=== PATIENT | female | born 1945 | race Caucasian/White ===

== ENCOUNTER → 2020-09-01 09:28 | Outpatient (BNVA) | payer MEDICARE, SELFPAY | PROVIDERS: Family Provider Registered Nurse; Visit Provider Nurse Practitioner Family | DX: E78.5 Hyperlipidemia, unspecified (principal) | CPT/HCPCS: 80061 ==

== ENCOUNTER → 2020-10-14 16:35 | Outpatient (BNVA) | payer MEDICARE, SELFPAY | PROVIDERS: Family Provider Registered Nurse; Visit Provider Nurse Practitioner Family | DX: E07.9 Disorder of thyroid, unspecified (principal) | CPT/HCPCS: 84443 ==

== ENCOUNTER → 2021-03-06 10:04 | Outpatient (BNVA) | payer MEDICARE, SELFPAY | PROVIDERS: Family Provider Registered Nurse; PCP Nurse Practitioner Family; Visit Provider Nurse Practitioner Family | DX: I50.9 Heart failure, unspecified (principal) | CPT/HCPCS: 80048; 83880 ==

== ENCOUNTER → 2021-03-27 11:27 | Outpatient (BNVA) | payer MEDICARE, SELFPAY | PROVIDERS: Family Provider Registered Nurse; PCP Nurse Practitioner Family; Visit Provider Nurse Practitioner Family | DX: E07.9 Disorder of thyroid, unspecified (principal); K21.9 Gastro-esophageal reflux disease without esophagitis | CPT/HCPCS: 84443 ==

== ENCOUNTER 2021-04-09 07:47 | Outpatient (CLI) | payer MEDICARE, SELFPAY ==
--- NOTE | 2021-04-09 08:00 | USCV_ITS ---
Judy Burgos Age: 76 Gender: F : 1945 Exam Date: 04/09/2021 08:21 Ordering Phys: Marah Lucio Technologist: Lashay Lowe Exam Location: [facility] [place] Indication: Heart Failure BP: 135 / 70 HR: 67 Rhythm: Sinus Technical Quality: Adequate MEASUREMENTS (Male / Female) Normal Values 2D ECHO LV Diastolic Diameter PLAX 3.9 cm 4.2 - 5.9 / 3.9 - 5.3 cm LV Systolic Diameter PLAX 2.7 cm IVS Diastolic Thickness 1.2 cm 0.6 - 1.0 / 0.6 - 0.9 cm IVS Systolic Thickness 1.7 cm LVPW Diastolic Thickness 1.3 cm 0.6 - 1.0 / 0.6 - 0.9 cm LVPW Systolic Thickness 1.9 cm RV Chamber Size 2.7 cm LVOT Diameter 2.0 cm LV Ejection Fraction 2D Teich 57.7 % LV Ejection Fraction MOD 2C 56.1 % LV Ejection Fraction 2C AL 56.9 % LA Diameter 3.6 cm LA Width 2.9 cm LA Height 4.9 cm RA Width 3.0 cm RA Height 4.3 cm Aorta at Sinotubular Diameter 2.9 cm M-MODE LV Diastolic Diameter MM 3.9 cm 4.2 - 5.9 / 3.9 - 5.3 cm LV Systolic Diameter MM 2.7 cm LV Ejection Fraction MM Teich 58.9 % IVS Diastolic Thickness MM 1.1 cm 0.6 - 1.0 / 0.6 - 0.9 cm IVS Systolic Thickness MM 1.2 cm LVPW Diastolic Thickness MM 1.6 cm 0.6 - 1.0 / 0.6 - 0.9 cm LVPW Systolic Thickness MM 1.5 cm Aortic Annulus Diameter 3.5 cm LA Ao Ratio MM 1.1 MV E Point Septal Separation 0.4 cm DOPPLER AV Peak Velocity 165.0 cm/s LVOT Peak Velocity 84.0 cm/s AV Area Cont Eq vti 1.7 cm squared AV Area Cont Eq pk 1.6 cm squared MV Area PHT 3.1 cm squared Mitral E to A Ratio 0.8 MV E' Velocity 45.0 cm/s Mitral E to MV E' Ratio 15.1 Mitral E to LV E' Lateral Ratio 15.1 Mitral E to LV E' Septal Ratio 15.1 TR Peak Velocity 253.0 cm/s TR Peak Gradient 25.6 mmHg TV Peak E Velocity 57.0 cm/s Right Atrial Pressure 3.0 mmHg Pulmonary Artery Systolic Pressu 28.6 mmHg PV Peak Velocity 100.0 cm/s RV Acceleration Time 0.1 s RV Ejection Time 0.3 s RV AcT/ET 0.3 FINDINGS Left Ventricle Normal left ventricular size, systolic function and wall thickness, with no regional wall motion abnormalities. Left ventricular ejection fraction is estimated at 65 %. Grade I diastolic dysfunction (abnormal relaxation filling pattern), normal to mildly elevated filling pressures. Right Ventricle Normal right ventricular size and systolic function. Right ventricular systolic pressure 28.6 mmHg. Right Atrium Normal right atrial size. Left Atrium Mildly increased left atrial size. Mitral Valve Mildly thickened mitral valve. No mitral valve stenosis. Trace mitral valve regurgitation. Aortic Valve Structurally normal trileaflet aortic valve. No aortic valve stenosis. Moderate aortic valve regurgitation. Tricuspid Valve Structurally normal tricuspid valve. No tricuspid valve stenosis. Trace to mild tricuspid valve regurgitation. Pulmonic Valve Pulmonic valve not well visualized. Trace pulmonary valve regurgitation. Pericardium No pericardial effusion. Aorta Normal size aortic root and proximal ascending aorta. CONCLUSIONS 1. Normal left ventricular size, systolic function and wall thickness, with no regional wall motion abnormalities. Left ventricular ejection fraction is estimated at 65 %. Grade I diastolic dysfunction (abnormal relaxation filling pattern), normal to mildly elevated filling pressures. 2. Normal right ventricular size and systolic function. 3. Pulmonary artery pressure estimated at 29 mm Hg. 4. Moderate aortic valve regurgitation. 5. No prior similar studies to compare. Vivienne Hood MD (Electronically Signed) Final Date: 12 April 2021 17:14 S
== END 2021-04-09 07:48 | disposition home or self-care (01) ==
LOC: RAD 07:55
PROVIDERS: PCP Nurse Practitioner Family; Visit Provider Nurse Practitioner Family
DX: I50.9 Heart failure, unspecified (principal); I35.1 Nonrheumatic aortic (valve) insufficiency
CPT/HCPCS: 93306

== ENCOUNTER 2021-07-29 07:59 | Outpatient (CLI) | payer OTHER, SELFPAY ==
--- NOTE | 2021-07-29 08:21 | CT_ITS ---
WS: [id number] CT scan of the abdomen and pelvis with Oral and IV contrast. Additional two-dimensional coronal and s agittal reconstruction was performed. 07/29/2021 Clinical Data: R10.9 - Unspecified abdominal pain Comparison: CT abdomen and pelvis, 08/08/2017. DLP: 1045.[address] scans at [facility] use at least one of these dose optimization techniques: automated e xposure control; mA and/or kV adjustment per patient size (includes targeted exams where dose is matc hed to clinical indication); or iterative reconstruction. Findings: The lower lungs show no nodules, masses or effusions. The pulmonary vascularity is prominent and ther e is a groundglass appearance to the lower lobes. The liver, spleen, adrenal glands and pancreas are normal. There are clips in the gallbladder fossa f rom a cholecystectomy. The kidneys show equal bilateral contrast excretion with multiple bilateral nonobstructing central ca lculi. No hydronephrosis, cyst or renal mass is seen.. The abdominal aorta is normal in size with minimal calcification in the wall.. No appendicitis or diverticulitis is seen. There are large number of diverticula throughout the colon . Oral contrast is in the stomach and small bowel and there is no bowel dilatation. No abscess, adeno ralf, ascites, mass, obstruction or free air is seen. The bladder is unremarkable. The uterus is absent. No inguinal hernia is seen. The bones of the lower thorax, lumbar spine, pelvis, and hips show degenerative change of the lumbar vertebral bodies. CT/CT abdomen pelvis w con* [id number] Impression: 1. Pulmonary vascular congestion with groundglass appearance of the lower lobes . 2. Negative for acute intra-abdominal or pelvic abnormalities.
[2021-07-29 10:09] LABS: Blood Urea Nitrogen 15 mg/dL (8-23)
[2021-07-29] MEDS: iohexol 300 mg/mL 50 mL Btl PO (10:15)
[2021-07-29] MEDS: iohexol 300 mg/mL 100 mL Btl IV (10:15)
== END 2021-07-29 08:00 | disposition home or self-care (01) ==
PROVIDERS: PCP Nurse Practitioner Family; Visit Provider Nurse Practitioner Family
DX: Z01.812 Encounter for preprocedural laboratory examination (principal); R10.9 Unspecified abdominal pain
CPT/HCPCS: 74177; 82565; 84520; Q9967

== ENCOUNTER → 2022-01-11 14:45 | Outpatient (BNVA) | payer MEDICARE, SELFPAY | PROVIDERS: PCP Nurse Practitioner Family; Referring Provider Nurse Practitioner Family; Visit Provider Podiatrist Foot & Ankle Surgery | DX: M79.671 Pain in right foot (principal); M19.071 Primary osteoarthritis, right ankle and foot | CPT/HCPCS: 73630 ==

== ENCOUNTER → 2022-01-29 09:49 | Outpatient (BNVA) | payer BC, SELFPAY | PROVIDERS: PCP Nurse Practitioner Family; Visit Provider Nurse Practitioner Family | DX: I10 Essential (primary) hypertension (principal); E07.9 Disorder of thyroid, unspecified; E78.5 Hyperlipidemia, unspecified | CPT/HCPCS: 80053; 80061; 84443 ==

== ENCOUNTER → 2022-02-19 09:49 | Outpatient (BNVA) | payer MEDICARE, SELFPAY | PROVIDERS: PCP Nurse Practitioner Family; Visit Provider Internal Medicine Cardiovascular Disease | DX: I11.0 Hypertensive heart disease with heart failure (principal); I50.9 Heart failure, unspecified; I47.1 Supraventricular tachycardia | CPT/HCPCS: 99214 ==

== ENCOUNTER 2022-02-23 13:12 | Emergency (ER) | payer MEDICARE, SELFPAY ==
[2022-02-23] VITALS (20 sets, daily range): BP systolic 94–142; BP diastolic 58–76; PULSE 84–97; RESP 12–22; TEMP 36.6–37; O2SAT 88–94; BMI 29.9
[2022-02-23 14:03] LABS: Hemoglobin 14.2 g/dL (11.5-15.3); Mean Corpuscular HGB Conc 33.8 g/dL (30.0-36.0); Mean Corpuscular Volume 85.9 fl (81-99); Mean Platelet Volume 10.4 fL (7.4-10.4); Platelet Count 65 10^3/cmm (130-400); Red Blood Count 4.89 10^6/uL (4.1-5.3); Red Cell Distribution Width 13.1 % (12.1-15.1); White Blood Count 19.3 10^3/uL (4.0-10.0)
--- NOTE | 2022-02-23 14:13 | ECG_ITS ---
[facility] Test Date: 2022-02-23 Pat Name: Judy Burgos Department: Room: Gender: Female Prop Setter: : 1945 Requested By: Federica Cárdensa Order Number: [id number] Tyrone MD: Ajit Whitehead M.D. Measurements Intervals [place] Rate: 93 P: IN: QRS: 15 QRSD: 82 T: 44 QT: 346 QTc: 432 Interpretive Statements SUPRAVENTRICULAR RHYTHM LOW QRS VOLTAGE IN PRECORDIAL LEADS [QRS DEFLECTION < 1.0 mV IN CHEST LEADS] POSSIBLE RIGHT VENTRICULAR CONDUCTION DELAY [RSR (QR) IN V1/V2] SEPTAL MYOCARDIAL INFARCTION , OF INDETERMINATE AGE [40+ ms Q WAVE IN V1/V2] Compared to ECG 02/23/2022 15:09:03 Supraventricular rhythm now present Sinus rhythm no longer present Myocardial infarct finding still present Electronically Signed On 02-23-2022 20:46:25 CDT by Ajit Whitehead M.D. [id number]
--- NOTE | 2022-02-23 14:13 | XRR_ITS ---
PROCEDURE INFORMATION: Exam: XR Chest Exam date and time: 02/23/2022 3:18 PM Age: 77 years old Clinical indication: Other: Dizziness TECHNIQUE: Imaging protocol: XR of the chest. Views: 1 view. COMPARISON: CR Chest 1 [place] [id number] 08/08/2017 6:21 PM FINDINGS: Lungs: Mild diffuse nonspecific reticular interstitial opacities bilaterally which may represent interstitial pneumonitis and/or mild interstitial pulmonary edema. However there is also increasing confluence opacity in the left base/retrocardiac region which may represent developing pneumonia. Pleural spaces: No pleural effusion. No pneumothorax. Heart/Mediastinum: Cardiac silhouette size, and vascularity are somewhat accentuated, likely related to poor inspiration/expansion however clinical correlation for mild CHF should be obtained. As above. Bones/joints: No acute osseous findings. Other findings: Single view was submitted. XR/XR chest 1V portable [id number] IMPRESSION: 1. Accentuated cardiac silhouette size and vascularity. See discussion above. 2. Bilateral interstitial opacities and increasing confluent opacity in the left base. See discussion above..
--- NOTE | 2022-02-23 14:14 | W.ED.DIZZY ---
Documented by User: IVORY Jordan 02/24/22 07:05 HPI - Dizziness General: Chief Complaint: Dizziness Stated Complaint: Low BP, Dizziness, On heartcare meds Time Seen by Provider: 02/23/22 13:56 Source: patient and family (daughter) Mode of arrival: wheelchair Limitations: no limitations History of Present Illness: HPI Narrative: Patient is a 77-year-old female here with her daughter for concerns of dizziness and hypotension. Patient has a PMH significant for HTN, SVT, hyperthyroidism, CHF (last echocardiogram was 03/2021 showing an EF of 65%). Patient was recently seen at [facility] on Tuesday for right sided abdominal pains and diagnosed with a right ureter stone as well as a UTI. She was discharged home on Hydrocodone, Flomax, and Augmentin. Patient tells me she is still having intermittent right lower abdominal pains. She was having nausea and vomiting when she presented to their ED but states this has subsided. Daughter feels like patient's swelling has worsened. She did see her tissue recovery technician Dr. Hood recently who made changes to her furosemide and amlodipine but patient has not started these new changes yet. Patient tells me she is having blood pressures as low as 80s/40s at home. MD elicited complaint: dizziness Onset (ago): day(s) Timing: gradual onset Context: recent illness History of similar symptoms: No Associated symptoms: Denies chest pain, chills, headache(s), nausea, palpitations, syncope or vomiting Associated neuro symptoms: Deny confusion or numbness in extremities Review of Systems Const: Denies: fever(s), chills or body aches Eyes: Denies: change in vision Card: Reports: swelling of feet/ankles (chronic) and lightheadedness; Denies: chest pain, palpitations, irregular heart rhythm or syncope Resp: Denies: dyspnea, wheezing or hemoptysis GI: Reports: abdominal pain; Denies: nausea, vomiting, diarrhea or change in bowel habits : Denies: flank pain or difficulty voiding Musc: Denies: neck pain, back pain, extremity pain or joint pain Skin/Breast: Denies: rash Neuro: Reports: dizziness; Denies: headache(s), numbness in extremities, sensory changes, frequent falls, confusion, Slurred speech present, difficulty communicating thoughts or seizure-like activity PFS ED PFSH: Medical History HTN (hypertension) Osteoarthritis SVT (supraventricular tachycardia) Thyroid disease Surgical History S/P cholecystectomy S/P hysterectomy S/P tubal ligation Family History Mother Heart disease Brother Heart disease Stroke Social History Smoking and tobacco status: never smoked Physical Exam Const: COMMON NORMALS: patient oriented x3, no limitations, alert and well nourished GENERAL APPEARANCE: cooperative and ill appearing ORIENTATION/CONSCIOUSNESS: Yes awake, Yes oriented to person, Yes oriented to place and Yes oriented to time HENMT: COMMON NORMALS: normocephalic and atraumatic HEAD & SCALP: normal to inspection, normocephalic and atraumatic Eye: COMMON NORMALS: Equal, round and reactive pupils present and EOMs intact bilaterally GENERAL EYE: normal light reflex SCLERA: scleral abnormal Laterality of scleral abnormality: positive bilateral scleral icterus PUPIL: Yes Equal, round and reactive pupils present DIRECT OPHTHALMOSCOPY: Yes normal light reflex Resp: COMMON NORMALS: normal respiratory effort and clear to auscultation bilaterally AUSCULTATION: clear to auscultation bilaterally Cardio: COMMON NORMALS: regular rate and regular rhythm RATE: regular rate RHYTHM: regular rhythm GI: COMMON NORMALS: Normal to inspection, nondistended, normoactive bowel sounds present and Soft to palpation INSPECTION: Yes normal to inspection AUSCULTATION: Yes normoactive bowel sounds PALPATION: Yes Soft to palpation, Yes Tenderness to palpation present (GI) (R upper and R mid abdomen), No Guarding due to palpation present (GI) and No Rigid due to palpation : COMMON NORMALS: Yes no CVA tenderness BLADDER/KIDNEY EXAM: Yes no CVA tenderness Back/Pelvis: COMMON NORMALS: no CVA tenderness, thoracic and lumbar spine normal to inspection and no thoracic nor lumbar tenderness Extremity: COMMON NORMALS: normal to inspection, capillary refill normal, no joint enlargement, no clubbing, cyanosis or edema and no calf tenderness NARRATIVE EXTREMITY EXAM: mild bilateral LE symmetrical non-pitting edema GENERAL: Yes normal exam except as noted Neuro: VAUGHN COMA SCALE: document GCS findings Norton coma scale eye opening: Spontaneous Norton coma scale verbal response: Orientated Vaughn coma scale motor response: Obey commands Vaughn coma scale total score: 15 COMMON NORMALS: patient oriented x3, moves all extremities, no focal motor deficits and no sensory deficits noted SENSORIUM/ORIENTATION: Yes alert, Yes oriented to person, Yes oriented to place and Yes oriented to time Skin: COMMON NORMALS: no rashes or lesions noted GENERAL SKIN EXAM: no rashes or lesions noted Course ED course: Patient was moved from and Dr. Peterson will assume care of her given her acuity. Vital Signs: Vital signs: Vital Signs Temperature 97.8 F 02/23/22 19:00 Pulse Rate 89 02/24/22 01:05 Respiratory Rate 16 02/24/22 01:05 Blood Pressure 117/65 02/24/22 01:05 Pulse Oximetry 96 02/24/22 01:05 MDM - Dizziness Lab Data : 02/23/22 13:55 02/23/22 13:55 Radiology Impressions Chest X-Ray 02/23/22 14:13 IMPRESSION: 1. Accentuated cardiac silhouette size and vascularity. See discussion above. 2. Bilateral interstitial opacities and increasing confluent opacity in the left base. See discussion above.. Abdomen/Pelvis CT 02/23/22 14:37 IMPRESSION: 1. Recently passed calculus in the bladder lumen measuring about 3 x 3 mm. No significant hydronephrosis on either side. Punctate nonobstructing bilateral renal calculi are also present. No obstructing ureteral/UVJ region calculi. 2. Colonic diverticulosis without diverticulitis or other acute bowel findings. 3. Mild splenomegaly with stable tiny 3 mm hypodense lesion, nonspecific. See discussion above. 4. Extrahepatic biliary ductal dilatation which could be related to normal status post cholecystectomy. However distal CBD obstruction cannot be excluded. Clinical/LFT correlation should be obtained. Followup imaging may also be considered if clinically indicated. Comparison with previous studies may also be helpful if available. 5. Cardiothoracic findings as above. Cholangiopancreatography MRI 02/23/22 16:51 IMPRESSION: 1. Status post cholecystectomy with intrahepatic and extrahepatic bile duct dilatation similar to recent CT exam. No intraductal calculi or obvious biliary stricture. No significant pancreatic ductal dilatation or large cystic masses. 2. Limited pancreatic assessment due to lack of contrast however no large contour deforming masses are identified. Interval imaging follow-up may be obtained if clinically indicated. GI consultation may also be considered to assess possibility of ERCP/EUS if clinically indicated. 3. Hepatic steatosis without cirrhosis. Mild splenomegaly. Laboratory Results WBC 19.3 10^3/uL (4.0-10.0) H 02/23/22 13:55 RBC 4.89 10^6/uL (4.1-5.3) 02/23/22 13:55 Hgb 14.2 g/dL (11.5-15.3) 02/23/22 13:55 Hct 42.0 % (37.0-47.0) 02/23/22 13:55 MCV 85.9 fl (81-99) 02/23/22 13:55 MCH 29.0 pg (28.0-34.0) 02/23/22 13:55 MCHC 33.8 g/dL (30.0-36.0) 02/23/22 13:55 RDW 13.1 % (12.1-15.1) 02/23/22 13:55 Plt Count 65 10^3/cmm (130-400) L 02/23/22 13:55 MPV 10.4 fL (7.4-10.4) 02/23/22 13:55 Lymph % (Auto) Not Reportable 02/23/22 13:55 [place] % (Auto) Not Reportable 02/23/22 13:55 Lymph # (Auto) Not Reportable 02/23/22 13:55 [place] # (Auto) Not Reportable 02/23/22 13:55 Total Counted 100 (0-100) 02/23/22 13:55 Atypical Lymphs % 0.0 % (0-5) 02/23/22 13:55 Absolute Neutrophils 14.9 10^3/cmm (1.4-6.5) H 02/23/22 13:55 Segmented Neutrophils 59 % 02/23/22 13:55 Abs Segm Neuts (Man) 11.4 10/cmm (1.6-7.1) H 02/23/22 13:55 Band Neutrophils 18.0 % 02/23/22 13:55 Abs Band Neuts (Man) 3.5 10^3/cmm (0.0-1.2) H 02/23/22 13:55 Absolute Lymphocytes 1.5 10^3/cmm (1.2-3.4) 02/23/22 13:55 Lymphocytes (Manual) 8 % 02/23/22 13:55 Monocytes (Manual) 3.0 % 02/23/22 13:55 Absolute Monocytes 0.6 10^3/cmm (0.1-0.6) 02/23/22 13:55 Eosinophils (Manual) 0 % 02/23/22 13:55 Absolute Eosinophils 0.0 10^3/cmm (0.0-0.7) 02/23/22 13:55 Basophils (Manual) 0.0 % 02/23/22 13:55 Absolute Basophils 0.0 10^3/cmm (0.0-0.2) 02/23/22 13:55 Metamyelocytes 11.0 % 02/23/22 13:55 Myelocytes 1.0 % 02/23/22 13:55 Platelet Estimate Decreased (Normal) L 02/23/22 13:55 PT 16.90 SECONDS (12.1-14.9) H 02/23/22 14:55 INR 1.34 (0.8-1.2) H 02/23/22 14:55 Sodium 133 mmol/L (136-145) L 02/23/22 13:55 Potassium 4.2 mmol/L (3.5-5.1) 02/23/22 13:55 Chloride 99 mmol/L (98-107) 02/23/22 13:55 Carbon Dioxide 23 mmol/L (22-29) 02/23/22 13:55 Anion Gap 15.2 (5-19) 02/23/22 13:55 BUN 44 mg/dL (8-23) H 02/23/22 13:55 Creatinine 1.3 mg/dL (0.5-0.9) H 02/23/22 13:55 GFR Calculation Not Reportable 02/23/22 13:55 Glucose 106 mg/dL (65-115) 02/23/22 13:55 Calculated Osmolality 288 mOsm/kg (285-295) 02/23/22 13:55 Lactic Acid 2.1 mmol/L (0.5-2.2) 02/23/22 14:55 Lactic Acid (Sepsis) 1.5 mmol/L (0.5-2.2) 02/23/22 17:48 Calcium 7.9 mg/dL (8.5-10.5) L 02/23/22 13:55 Total Bilirubin 4.3 mg/dL (0.15-1.2) H 02/23/22 13:55 AST 188 U/L (0-32) H 02/23/22 13:55 ALT 310 U/L (0-33) H 02/23/22 13:55 Alkaline Phosphatase 97 IU/L (35-105) 02/23/22 13:55 Troponin T Baseline 23 ng/L (0-10) H 02/23/22 13:55 Troponin T 120 Minute 20.67 ng/L (0-10) H 02/23/22 15:44 Delta Troponin T -2.33 ABS# (0-10) L 02/23/22 15:44 Troponin T Hi Sens 6Hr 14.83 ng/L (0-10) H 02/23/22 20:16 Troponin T Hi Sens 6Hr Delta -8.17 ng/L (0-12) L 02/23/22 20:16 NT-Pro-B Natriuret Pep 2579 pg/mL (0-450) H 02/23/22 13:55 Total Protein 5.9 g/dL (6.6-8.7) L 02/23/22 13:55 Albumin 3.2 g/dL (3.5-5.2) L 02/23/22 13:55 Globulin 2.7 g/dL (1.3-4.6) 02/23/22 13:55 Lipase 15 U/L (13-60) 02/23/22 13:55 Procalcitonin 58.18 ng/mL (0-0.5) H 02/23/22 13:55 TSH 5.63 uIU/mL (0.27-4.20) H 02/23/22 13:55 Urine Color Evelin (Yellow) 02/23/22 15:00 Urine Appearance Sl hazy (CLEAR) 02/23/22 15:00 Urine pH 5 (5-7) 02/23/22 15:00 Ur Specific [place] 1.020 (1.005-1.030) 02/23/22 15:00 Urine Protein Neg (Negative) 02/23/22 15:00 Urine Glucose (UA) Norm (Normal) 02/23/22 15:00 Urine Ketones Negative (Negative) 02/23/22 15:00 Urine Blood 3+ (Negative) H 02/23/22 15:00 Urine Nitrate Negative (Negative) 02/23/22 15:00 Urine Bilirubin 2+ (Negative) H 02/23/22 15:00 Urine Urobilinogen 4 mg/dL (Negative) H 02/23/22 15:00 Ur Leukocyte Esterase Trace (Negative) H 02/23/22 15:00 Urine RBC 50-80 /hpf (0-2) H 02/23/22 15:00 Urine WBC 10-15 /hpf (0-5) H 02/23/22 15:00 Ur Squamous Epith Cells Rare /hpf (0-5) 02/23/22 15:00 Amorphous Sediment Not Reportable 02/23/22 15:00 Urine Bacteria 2+ /hpf (NONE) H 02/23/22 15:00 Acetaminophen < 5.0 ug/mL (10-30) L 02/23/22 13:15 Hepatitis A IgM Ab TNP 02/23/22 20:16 Hep Bs Antigen Non-reactive (Nonreactive) 02/23/22 20:16 Hep B Core IgM Ab Non-reactive (Nonreactive) 02/23/22 20:16 Hepatitis C Antibody Non-reactive (Nonreactive) 02/23/22 20:16 Discharge Plan Discharge Patient Disposition: Admitted As Inpatient Clinical Impression: Thrombocytopenia, Elevated LFTs, Left lower lobe pneumonia, Acute kidney injury, Acute on chronic clinical systolic heart failure Condition: Stable Coding Level of Care Code ED Corrections Identification Technician for Chg Fwd Exam Comprehensive Documented by User: Susi Levy MD 02/23/22 21:23 HPI - Dizziness General: Chief Complaint: Dizziness Stated Complaint: Low BP, Dizziness, On heartcare meds Time Seen by Provider: 02/23/22 13:56 PFSH ED PFSH: Medical History HTN (hypertension) Osteoarthritis SVT (supraventricular tachycardia) Thyroid disease Surgical History S/P cholecystectomy S/P hysterectomy S/P tubal ligation Family History Mother Heart disease Brother Heart disease Stroke Social History Smoking and tobacco status: never smoked Physical Exam Neuro: VAUGHN COMA SCALE: document GCS findings Norton coma scale total score: 15 Course Vital Signs: Vital signs: Vital Signs Temperature 97.8 F 02/23/22 19:00 Pulse Rate 89 02/24/22 01:05 Respiratory Rate 16 02/24/22 01:05 Blood Pressure 117/65 02/24/22 01:05 Pulse Oximetry 96 02/24/22 01:05 MDM - Dizziness Medical Decision Making Patient presents here with white count and initial hypotension is improved here with IV fluids does have a possible pneumonia also has elevated LFTs with a possible cholangitis I spoke to my surgeon on-call here Dr. Bianchi who felt patient need to be transferred for higher level of care GI did speak to [facility] who is excepting. Lab Data : 02/23/22 13:55 02/23/22 13:55 Radiology Impressions Chest X-Ray 02/23/22 14:13 IMPRESSION: 1. Accentuated cardiac silhouette size and vascularity. See discussion above. 2. Bilateral interstitial opacities and increasing confluent opacity in the left base. See discussion above.. Abdomen/Pelvis CT 02/23/22 14:37 IMPRESSION: 1. Recently passed calculus in the bladder lumen measuring about 3 x 3 mm. No significant hydronephrosis on either side. Punctate nonobstructing bilateral renal calculi are also present. No obstructing ureteral/UVJ region calculi. 2. Colonic diverticulosis without diverticulitis or other acute bowel findings. 3. Mild splenomegaly with stable tiny 3 mm hypodense lesion, nonspecific. See discussion above. 4. Extrahepatic biliary ductal dilatation which could be related to normal status post cholecystectomy. However distal CBD obstruction cannot be excluded. Clinical/LFT correlation should be obtained. Followup imaging may also be considered if clinically indicated. Comparison with previous studies may also be helpful if available. 5. Cardiothoracic findings as above. Cholangiopancreatography MRI 02/23/22 16:51 IMPRESSION: 1. Status post cholecystectomy with intrahepatic and extrahepatic bile duct dilatation similar to recent CT exam. No intraductal calculi or obvious biliary stricture. No significant pancreatic ductal dilatation or large cystic masses. 2. Limited pancreatic assessment due to lack of contrast however no large contour deforming masses are identified. Interval imaging follow-up may be obtained if clinically indicated. GI consultation may also be considered to assess possibility of ERCP/EUS if clinically indicated. 3. Hepatic steatosis without cirrhosis. Mild splenomegaly. Laboratory Results WBC 19.3 10^3/uL (4.0-10.0) H 02/23/22 13:55 RBC 4.89 10^6/uL (4.1-5.3) 02/23/22 13:55 Hgb 14.2 g/dL (11.5-15.3) 02/23/22 13:55 Hct 42.0 % (37.0-47.0) 02/23/22 13:55 MCV 85.9 fl (81-99) 02/23/22 13:55 MCH 29.0 pg (28.0-34.0) 02/23/22 13:55 MCHC 33.8 g/dL (30.0-36.0) 02/23/22 13:55 RDW 13.1 % (12.1-15.1) 02/23/22 13:55 Plt Count 65 10^3/cmm (130-400) L 02/23/22 13:55 MPV 10.4 fL (7.4-10.4) 02/23/22 13:55 Lymph % (Auto) Not Reportable 02/23/22 13:55 [place] % (Auto) Not Reportable 02/23/22 13:55 Lymph # (Auto) Not Reportable 02/23/22 13:55 [place] # (Auto) Not Reportable 02/23/22 13:55 Total Counted 100 (0-100) 02/23/22 13:55 Atypical Lymphs % 0.0 % (0-5) 02/23/22 13:55 Absolute Neutrophils 14.9 10^3/cmm (1.4-6.5) H 02/23/22 13:55 Segmented Neutrophils 59 % 02/23/22 13:55 Abs Segm Neuts (Man) 11.4 10/cmm (1.6-7.1) H 02/23/22 13:55 Band Neutrophils 18.0 % 02/23/22 13:55 Abs Band Neuts (Man) 3.5 10^3/cmm (0.0-1.2) H 02/23/22 13:55 Absolute Lymphocytes 1.5 10^3/cmm (1.2-3.4) 02/23/22 13:55 Lymphocytes (Manual) 8 % 02/23/22 13:55 Monocytes (Manual) 3.0 % 02/23/22 13:55 Absolute Monocytes 0.6 10^3/cmm (0.1-0.6) 02/23/22 13:55 Eosinophils (Manual) 0 % 02/23/22 13:55 Absolute Eosinophils 0.0 10^3/cmm (0.0-0.7) 02/23/22 13:55 Basophils (Manual) 0.0 % 02/23/22 13:55 Absolute Basophils 0.0 10^3/cmm (0.0-0.2) 02/23/22 13:55 Metamyelocytes 11.0 % 02/23/22 13:55 Myelocytes 1.0 % 02/23/22 13:55 Platelet Estimate Decreased (Normal) L 02/23/22 13:55 PT 16.90 SECONDS (12.1-14.9) H 02/23/22 14:55 INR 1.34 (0.8-1.2) H 02/23/22 14:55 Sodium 133 mmol/L (136-145) L 02/23/22 13:55 Potassium 4.2 mmol/L (3.5-5.1) 02/23/22 13:55 Chloride 99 mmol/L (98-107) 02/23/22 13:55 Carbon Dioxide 23 mmol/L (22-29) 02/23/22 13:55 Anion Gap 15.2 (5-19) 02/23/22 13:55 BUN 44 mg/dL (8-23) H 02/23/22 13:55 Creatinine 1.3 mg/dL (0.5-0.9) H 02/23/22 13:55 GFR Calculation Not Reportable 02/23/22 13:55 Glucose 106 mg/dL (65-115) 02/23/22 13:55 Calculated Osmolality 288 mOsm/kg (285-295) 02/23/22 13:55 Lactic Acid 2.1 mmol/L (0.5-2.2) 02/23/22 14:55 Lactic Acid (Sepsis) 1.5 mmol/L (0.5-2.2) 02/23/22 17:48 Calcium 7.9 mg/dL (8.5-10.5) L 02/23/22 13:55 Total Bilirubin 4.3 mg/dL (0.15-1.2) H 02/23/22 13:55 AST 188 U/L (0-32) H 02/23/22 13:55 ALT 310 U/L (0-33) H 02/23/22 13:55 Alkaline Phosphatase 97 IU/L (35-105) 02/23/22 13:55 Troponin T Baseline 23 ng/L (0-10) H 02/23/22 13:55 Troponin T 120 Minute 20.67 ng/L (0-10) H 02/23/22 15:44 Delta Troponin T -2.33 ABS# (0-10) L 02/23/22 15:44 Troponin T Hi Sens 6Hr 14.83 ng/L (0-10) H 02/23/22 20:16 Troponin T Hi Sens 6Hr Delta -8.17 ng/L (0-12) L 02/23/22 20:16 NT-Pro-B Natriuret Pep 2579 pg/mL (0-450) H 02/23/22 13:55 Total Protein 5.9 g/dL (6.6-8.7) L 02/23/22 13:55 Albumin 3.2 g/dL (3.5-5.2) L 02/23/22 13:55 Globulin 2.7 g/dL (1.3-4.6) 02/23/22 13:55 Lipase 15 U/L (13-60) 02/23/22 13:55 Procalcitonin 58.18 ng/mL (0-0.5) H 02/23/22 13:55 TSH 5.63 uIU/mL (0.27-4.20) H 02/23/22 13:55 Urine Color Evelin (Yellow) 02/23/22 15:00 Urine Appearance Sl hazy (CLEAR) 02/23/22 15:00 Urine pH 5 (5-7) 02/23/22 15:00 Ur Specific [place] 1.020 (1.005-1.030) 02/23/22 15:00 Urine Protein Neg (Negative) 02/23/22 15:00 Urine Glucose (UA) Norm (Normal) 02/23/22 15:00 Urine Ketones Negative (Negative) 02/23/22 15:00 Urine Blood 3+ (Negative) H 02/23/22 15:00 Urine Nitrate Negative (Negative) 02/23/22 15:00 Urine Bilirubin 2+ (Negative) H 02/23/22 15:00 Urine Urobilinogen 4 mg/dL (Negative) H 02/23/22 15:00 Ur Leukocyte Esterase Trace (Negative) H 02/23/22 15:00 Urine RBC 50-80 /hpf (0-2) H 02/23/22 15:00 Urine WBC 10-15 /hpf (0-5) H 02/23/22 15:00 Ur Squamous Epith Cells Rare /hpf (0-5) 02/23/22 15:00 Amorphous Sediment Not Reportable 02/23/22 15:00 Urine Bacteria 2+ /hpf (NONE) H 02/23/22 15:00 Acetaminophen < 5.0 ug/mL (10-30) L 02/23/22 13:15 Hepatitis A IgM Ab TNP 02/23/22 20:16 Hep Bs Antigen Non-reactive (Nonreactive) 02/23/22 20:16 Hep B Core IgM Ab Non-reactive (Nonreactive) 02/23/22 20:16 Hepatitis C Antibody Non-reactive (Nonreactive) 02/23/22 20:16 EKG Data EKG 1: I personally reviewed and interpreted this EKG as follows: EKG interpretation date: 02/23/22 EKG interpretation time: 19:24 Interpretation: nsr hr [address] or t wave abnormalities qrs 82 qtc 397 Discharge Plan Discharge Patient Disposition: Admitted As Inpatient Clinical Impression: Thrombocytopenia, Elevated LFTs, Left lower lobe pneumonia, Acute kidney injury, Acute on chronic clinical systolic heart failure Condition: Stable Coding Level of Care Code ED Corrections Identification Technician for Chg Fwd Exam Comprehensive Documented by User: Ki Peterson DO 02/25/22 07:07 HPI - Dizziness General: Chief Complaint: Dizziness Stated Complaint: Low BP, Dizziness, On heartcare meds Time Seen by Provider: 02/23/22 13:56 PFSH ED PFSH: Medical History HTN (hypertension) Osteoarthritis SVT (supraventricular tachycardia) Thyroid disease Surgical History S/P cholecystectomy S/P hysterectomy S/P tubal ligation Family History Mother Heart disease Brother Heart disease Stroke Social History Smoking and tobacco status: never smoked Physical Exam Neuro: VAUGHN COMA SCALE: document GCS findings Vaughn coma scale total score: 15 Course Vital Signs: Vital signs: Vital Signs Temperature 97.8 F 02/23/22 19:00 Pulse Rate 89 02/24/22 01:05 Respiratory Rate 16 02/24/22 01:05 Blood Pressure 117/65 02/24/22 01:05 Pulse Oximetry 96 02/24/22 01:05 MDM - Dizziness Medical Decision Making Chart reviewed and patient discussed with midlevel. Agree with assessment and plan. Care then turned over to Dr. Levy at change of shift see his note for final diagnosis and disposition Patient presents here with white count and initial hypotension is improved here with IV fluids does have a possible pneumonia also has elevated LFTs with a possible cholangitis I spoke to my surgeon on-call here Dr. Bianchi who felt patient need to be transferred for higher level of care GI did speak to [facility] who is excepting. Lab Data : 02/23/22 13:55 02/23/22 13:55 Radiology Impressions Chest X-Ray 02/23/22 14:13 IMPRESSION: 1. Accentuated cardiac silhouette size and vascularity. See discussion above. 2. Bilateral interstitial opacities and increasing confluent opacity in the left base. See discussion above.. Abdomen/Pelvis CT 02/23/22 14:37 IMPRESSION: 1. Recently passed calculus in the bladder lumen measuring about 3 x 3 mm. No significant hydronephrosis on either side. Punctate nonobstructing bilateral renal calculi are also present. No obstructing ureteral/UVJ region calculi. 2. Colonic diverticulosis without diverticulitis or other acute bowel findings. 3. Mild splenomegaly with stable tiny 3 mm hypodense lesion, nonspecific. See discussion above. 4. Extrahepatic biliary ductal dilatation which could be related to normal status post cholecystectomy. However distal CBD obstruction cannot be excluded. Clinical/LFT correlation should be obtained. Followup imaging may also be considered if clinically indicated. Comparison with previous studies may also be helpful if available. 5. Cardiothoracic findings as above. Cholangiopancreatography MRI 02/23/22 16:51
[2022-02-23 14:31] LABS: Alanine Aminotransferase 310 U/L (0-33); Albumin Level 3.2 g/dL (3.5-5.2); Alkaline Phosphatase 97 IU/L (35-105); Anion Gap 15.2 (5-19); Aspartate Amino Transferase 188 U/L (0-32); Blood Urea Nitrogen 44 mg/dL (8-23); Calcium 7.9 mg/dL (8.5-10.5); Carbon Dioxide 23 mmol/L (22-29); Chloride 99 mmol/L (98-107); Globulin 2.7 g/dL (1.3-4.6); Glucose 106 mg/dL (65-115); Osmolality Calculated 288 mOsm/kg (285-295); Potassium 4.2 mmol/L (3.5-5.1); Sodium 133 mmol/L (136-145); Thyroid Stimulating Hormone 5.63 uIU/mL (0.27-4.20); Total Bilirubin 4.3 mg/dL (0.15-1.2); Total Protein 5.9 g/dL (6.6-8.7)
--- NOTE | 2022-02-23 14:37 | CTR_ITS ---
PROCEDURE INFORMATION: Exam: CT Abdomen And Pelvis With Contrast Exam date and time: 02/23/2022 4:18 PM Age: 77 years old Clinical indication: Nausea and other: Low BP; Prior surgery; Surgery date: 6+ months; Surgery type: Gb; Hystorectomy; PT denies smoking HX; PT denies HX of CA; Additional info: Pain, hypotension, elevated lfts, recently diagnosed with R ureter stone with UTI TECHNIQUE: Imaging protocol: Computed tomography of the abdomen and pelvis with contrast. Radiation optimization: All CT scans at this facility use at least one of these dose optimization techniques: automated exposure control; mA and/or kV adjustment per patient size (includes targeted exams where dose is matched to clinical indication); or iterative reconstruction. Contrast material: VISIPAQUE 320; Contrast volume: 95 ml; Contrast route: INTRAVENOUS (IV); COMPARISON: CT abdomen pelvis w con* [id number] 07/29/2021 10:13 AM RADIATION DOSE METRICS: Total DLP (mGy-cm): 1707.47 FINDINGS: Lungs: Bibasilar interstitial prominence suggesting chronic scarring or early fibrotic changes. Heart: Mild cardiomegaly with probable mild vascular congestion. Liver: Slightly elongated right hepatic lobe with no significant overall hepatomegaly. No cirrhosis. Calcified hepatic granulomas. No suspicious lesion. Probable mild hepatic steatosis. Gallbladder and bile ducts: Prior cholecystectomy. Slightly prominent proximal CBD at 9-10 mm however it demonstrates normal gradual distal tapering measuring 5 mm distally. Pancreas: Normal. No ductal dilation. Spleen: Mild splenomegaly. Calcified splenic granuloma. Tiny hypodense lesion superior splenic region measuring 3 mm, unchanged and is most likely benign. However follow-up in 6-12 months may be considered if there is history of malignancy. Adrenal glands: Normal. No mass. Kidneys and ureters: Bilateral lower pole nonobstructing renal calculi measuring about 3 mm. There is minimal urothelial enhancement of the right ureter. A calculus is noted in the dependent bladder lumen measuring about 3 x 3 mm, presumably related to recently passed calculus. No obstructing UVJ or ureteral calculi are otherwise identified. Stomach and bowel: Colonic diverticulosis. Small to moderate stool burden. Appendix: Normal appendix. Intraperitoneal space: Unremarkable. No free air. No significant fluid collection. Vasculature: Aortoiliac calcifications without aneurysm. Lymph nodes: No enlarged lymph nodes. Urinary bladder: See Kidneys and ureters finding. Reproductive: Prior hysterectomy. Bones/joints: Multilevel vertebral disc degeneration and endplate osteophytes. No acute osseous findings otherwise. Soft tissues: No acute findings. CT/CT abdomen pelvis w con* [id number] IMPRESSION: 1. Recently passed calculus in the bladder lumen measuring about 3 x 3 mm. No significant hydronephrosis on either side. Punctate nonobstructing bilateral renal calculi are also present. No obstructing ureteral/UVJ region calculi. 2. Colonic diverticulosis without diverticulitis or other acute bowel findings. 3. Mild splenomegaly with stable tiny 3 mm hypodense lesion, nonspecific. See discussion above. 4. Extrahepatic biliary ductal dilatation which could be related to normal status post cholecystectomy. However distal CBD obstruction cannot be excluded. Clinical/LFT correlation should be obtained. Followup imaging may also be considered if clinically indicated. Comparison with previous studies may also be helpful if available. 5. Cardiothoracic findings as above.
[2022-02-23 14:44] LABS: Slide Review Slide Review Perform
[2022-02-23 14:45] LABS: Absolute Neutrophil 14.9 10^3/cmm (1.4-6.5); Absolute Segmented Neutrophil 11.4 10/cmm (1.6-7.1); Band Neutrophils Absolute 3.5 10^3/cmm (0.0-1.2); Eosinophils 0 %; Lymphocytes 8 %; Lymphocytes Absolute 1.5 10^3/cmm (1.2-3.4); Monocytes Absolute 0.6 10^3/cmm (0.1-0.6); Platelet Estimate Decreased (Normal); Segmented Neutrophils 59 %; Total Cells Counted 100 (0-100)
--- NOTE | 2022-02-23 14:58 | PC.PHAR ---
pt states she takes care of her own medications-pt states shes been taking amlodipine 5mg bid-rx written on 02/19/22 for 5mg daily-pt states she set her senior planner up for the 5mg bid states on tuesday she'll redo the senior planner and do 5mg daily-pts family states the pt took one treatment of albuterol today states this medication is not the pts -pt states she got some kind of shot in her foot last tuesday-notes are made in the pharmacy comments
[2022-02-23] MEDS: piperacillin-tazobactam 3.375 GM in sodium chloride 0.9% (plus) 50 ML IV (15:20)
[2022-02-23] MEDS: sodium chloride 0.9% 1,710 ML 1710 ML IV (15:21)
[2022-02-23 15:34] LABS: Lactic Sepsis W/Reflex 2.1 mmol/L (0.5-2.2)
[2022-02-23 15:35] LABS: Lipase 15 U/L (13-60); NT Pro B Type Natriuretic Pept 2579 pg/mL (0-450)
[2022-02-23 15:41] LABS: INR 1.34 (0.8-1.2)
[2022-02-23 16:10] LABS: Glucose Urine UA Norm (Normal); Ketones Urine Negative (Negative); Protein Urine Neg (Negative); Urine Appearance SL Hazy (CLEAR); Urine Color Amber (Yellow); pH Urine 5 (5-7)
[2022-02-23 16:11] LABS: Add Urine Microscopic? YES; Bilirubin Urine 2+ (Negative); Blood Urine 3+ (Negative); Leukocyte Esterase Urine Trace (Negative); Nitrate Urine Negative (Negative); Urobilinogen Urine 4 mg/dL (Negative)
[2022-02-23 16:12] LABS: Add Urine Culture? Yes; Bacteria Urine 2+ /hpf; RBC Urine 50-80 /hpf (0-2); Squamous Epithelial Cell Urine RARE /hpf (0-5)
--- NOTE | 2022-02-23 16:13 | ECG_ITS ---
[facility] Test Date: 2022-02-23 Pat Name: Judy Burgos Department: Room: Gender: Female Rn Practitioner: : 1945 Requested By: Federica Cárdenas Order Number: [id number] Tyrone MD: Ajit Whitehead M.D. Measurements Intervals [place] Rate: 85 P: -28 PA: 164 QRS: 12 QRSD: 87 T: 37 QT: 359 QTc: 429 Interpretive Statements SINUS RHYTHM LOW QRS VOLTAGE IN PRECORDIAL LEADS [QRS DEFLECTION < 1.0 mV IN CHEST LEADS] POSSIBLE RIGHT VENTRICULAR CONDUCTION DELAY [RSR (QR) IN V1/V2] ANTEROSEPTAL MYOCARDIAL INFARCTION , OF INDETERMINATE AGE [40+ ms Q WAVE IN V1-V4] Compared to ECG 09/22/2017 10:29:44 Low QRS voltage now present Ectopic atrial rhythm no longer present Myocardial infarct finding still present Electronically Signed On 02-23-2022 20:54:11 CDT by Ajit Whitehead M.D. [id number]
[2022-02-23 16:17] LABS: Procalcitonin 58.18 ng/mL (0-0.5)
[2022-02-23] MEDS: iodixanol 320 mg/mL 100mL Btl IV (16:20)
[2022-02-23 16:28] LABS: Troponin 5 2HR 20.67 ng/L (0-10)
[2022-02-23 16:47] LABS: Troponin(5th) Baseline 23 ng/L (0-10)
[2022-02-23 16:47] LABS: Reflex Lactate Order REFLEX LACTIC ORDERD
--- NOTE | 2022-02-23 16:51 | MRR_ITS ---
PROCEDURE INFORMATION: Exam: MR Abdomen Without Contrast Exam date and time: 02/23/2022 6:12 PM Age: 77 years old Clinical indication: Abdominal pain; Generalized; Prior surgery; Surgery type: Gall bladder; Additional info: Hyperbilirubinemia TECHNIQUE: Imaging protocol: MR of the abdomen without contrast. COMPARISON: CT abdomen pelvis w con* [id number] 02/23/2022 4:18 PM FINDINGS: Liver: Liver is normal in size with diffuse steatosis. No cirrhosis. No large hepatic lesions on unenhanced images. Gallbladder and bile ducts: Prior cholecystectomy. Mild intrahepatic bile duct dilatation. No obvious intrahepatic biliary stricture. Mild proximal CBD dilatation measuring 9-6 mm, demonstrating gradual tapering distally with distal CBD measuring about 3-4 mm. No intraductal calculi. Pancreas: No significant main pancreatic ductal dilatation or large cystic lesions. No large contour deforming pancreatic mass is identified however assessment is limited due to lack of IV contrast. Spleen: Mild splenomegaly. Tiny hypodense splenic lesion, seen on CT, cannot be well visualized, due to motion. Adrenal glands: Unremarkable. No mass. Kidneys and ureters: Unremarkable. No solid mass. No hydronephrosis. Stomach and bowel: Visualized stomach and intestines are unremarkable. Intraperitoneal space: No free fluid. Arteries: No abdominal aortic aneurysm. Bones/joints: Unremarkable. Soft tissues: Unremarkable. Other findings: Multiple routine sequences were submitted. Limited MRCP series were also obtained. Postcontrast dynamic images using IV gadolinium were not obtained. MR/MR MRCP [id number] IMPRESSION: 1. Status post cholecystectomy with intrahepatic and extrahepatic bile duct dilatation similar to recent CT exam. No intraductal calculi or obvious biliary stricture. No significant pancreatic ductal dilatation or large cystic masses. 2. Limited pancreatic assessment due to lack of contrast however no large contour deforming masses are identified. Interval imaging follow-up may be obtained if clinically indicated. GI consultation may also be considered to assess possibility of ERCP/EUS if clinically indicated. 3. Hepatic steatosis without cirrhosis. Mild splenomegaly.
[2022-02-23 16:57] LABS: Troponin 5 2HR Delta -2.33 ABS# (0-10)
[2022-02-23] MEDS: vancomycin 1,000 MG in sodium chloride 0.9% 250 ML 250 MG IV (17:12)
[2022-02-23 17:20] LABS: Acetaminophen < 5.0 ug/mL (10-30)
[2022-02-23 18:14] LABS: Lactic Acid level (Lactate) 1.5 mmol/L (0.5-2.2)
--- NOTE | 2022-02-23 19:08 | PC.NURSE ---
190 assumed pt care from Acacia GARCES
--- NOTE | 2022-02-23 20:13 | ECG_ITS ---
[facility] Test Date: 2022-02-23 Pat Name: Judy Burgos Department: Room: Gender: Female Nurse'S Assistant: : 1945 Requested By: Federica Cárdenas Order Number: [id number] Tyrone MD: Ajit Whitehead M.D. Measurements Intervals [place] Rate: 92 P: 4 IL: 162 QRS: 19 QRSD: 83 T: 53 QT: 348 QTc: 430 Interpretive Statements SINUS RHYTHM POSSIBLE LEFT ATRIAL ENLARGEMENT [-0.1mV P-WAVE IN V1/V2] LOW QRS VOLTAGE IN PRECORDIAL LEADS [QRS DEFLECTION < 1.0 mV IN CHEST LEADS] POSSIBLE RIGHT VENTRICULAR CONDUCTION DELAY [RSR (QR) IN V1/V2] ANTEROSEPTAL MYOCARDIAL INFARCTION , OF INDETERMINATE AGE [40+ ms Q WAVE IN V1-V4] Compared to ECG 09/22/2017 10:29:44 Low QRS voltage now present Ectopic atrial rhythm no longer present Myocardial infarct finding still present Electronically Signed On 02-23-2022 20:54:15 CDT by Ajit Whitehead M.D. [email or web address].[email or web address]/store/Ov/[id number]
[2022-02-23 21:30] LABS: Troponin 5 6HR 14.83 ng/L (0-10)
[2022-02-23] MEDS: HYDROmorphone 1 mg/mL INJ 1 mL IVP (21:48)
[2022-02-23 22:56] LABS: Hepatitis B Core IgM Non-Reactive (Nonreactive); Hepatitis B Surface Antigen Non-Reactive (Nonreactive); Hepatitis C Virus Antibody Non-Reactive (Nonreactive)
[2022-02-24] VITALS: BP 120/63; PULSE 91; RESP 16; O2SAT 94
[2022-02-24 00:30] VITALS: BP 102/58; PULSE 90; RESP 16; O2SAT 94
[2022-02-24 01:00] VITALS: BP 110/68; PULSE 87; RESP 16; O2SAT 95
[2022-02-24 01:05] VITALS: BP 117/65; PULSE 89; RESP 16; O2SAT 96
== END 2022-02-24 01:15 | disposition admitted as inpatient to this hospital (09) ==
PROVIDERS: Emergency Medicine; Family Medicine; Physician Assistant; Emergency Provider Emergency Medicine; PCP Nurse Practitioner Family
DX: D69.6 Thrombocytopenia, unspecified (principal); R79.89 Other specified abnormal findings of blood chemistry; J18.9 Pneumonia, unspecified organism; N17.9 Acute kidney failure, unspecified; I11.0 Hypertensive heart disease with heart failure; I50.23 Acute on chronic systolic (congestive) heart failure; I95.9 Hypotension, unspecified
CPT/HCPCS: 36415; 71045; 74177; 74181; 80053; 80074; 80307; 81001; 83605; 83690; 83880; 84145; 84443; 84484; 85007; 85025; 85610; 87040; 87086; 93005; 96365; 96367; 96375; 99285; J1170; J2543; J3370; J7030; J7050; Q9967

== ENCOUNTER 2022-03-02 10:32 | Outpatient (CLI) | payer MEDICARE, SELFPAY ==
[2022-03-02 11:22] LABS: Basophils % 0.7 %; Eosinophils # 0.1 10^3/uL (0.0-0.8); Eosinophils % 0.9 %; Hematocrit 47.4 % (37.0-47.0); Hemoglobin 15.1 g/dL (11.5-15.3); Lymphocytes # 1.7 10^3/uL (0.8-4.8); Lymphocytes % 28.9 %; Mean Corpuscular HGB Conc 31.9 g/dL (30.0-36.0); Mean Corpuscular Hemoglobin 28.6 pg (28.0-34.0); Mean Corpuscular Volume 89.8 fl (81-99); Mean Platelet Volume 10.6 fL (7.4-10.4); Monocytes # 0.6 10^3/uL (0.2-0.9); Monocytes % 9.6 %; Neutrophils # 3.37 10^3/uL (1.8-7.7); Neutrophils % 57.5 %; Nucleated Red Blood Cells % 0 %; Platelet Count 253 10^3/cmm (130-400); Red Blood Count 5.28 10^6/uL (4.1-5.3); White Blood Count 5.9 10^3/uL (4.0-10.0)
[2022-03-02 12:16] LABS: Alanine Aminotransferase 129 U/L (0-33); Albumin Level 3.6 g/dL (3.5-5.2); Alkaline Phosphatase 201 IU/L (35-105); Aspartate Amino Transferase 44 U/L (0-32); Blood Urea Nitrogen 15 mg/dL (8-23); Calcium 9.6 mg/dL (8.5-10.5); Carbon Dioxide 22 mmol/L (22-29); Chloride 102 mmol/L (98-107); Globulin 3.8 g/dL (1.3-4.6); Glucose 109 mg/dL (65-115); Osmolality Calculated 285 mOsm/kg (285-295); Sodium 137 mmol/L (136-145); Total Bilirubin 0.7 mg/dL (0.15-1.2); Total Protein 7.4 g/dL (6.6-8.7)
== END 2022-03-02 10:33 | disposition home or self-care (01) ==
LOC: LAB 10:35
PROVIDERS: PCP Nurse Practitioner Family; Visit Provider Nurse Practitioner Family
DX: J02.9 Acute pharyngitis, unspecified (principal); R79.89 Other specified abnormal findings of blood chemistry; D69.6 Thrombocytopenia, unspecified; J39.2 Other diseases of pharynx
CPT/HCPCS: 36415; 80053; 85025; 87070; 87071; 87880

== ENCOUNTER → 2022-03-15 09:47 | Outpatient (BNVA) | payer MEDICARE, SELFPAY | PROVIDERS: PCP Nurse Practitioner Family; Visit Provider Nurse Practitioner Family | DX: N39.0 Urinary tract infection, site not specified (principal); D69.6 Thrombocytopenia, unspecified; R74.8 Abnormal levels of other serum enzymes | CPT/HCPCS: 80076; 81000; 85025; 87077; 87086; 87184 ==

== ENCOUNTER → 2022-03-24 10:57 | Outpatient (BNVA) | payer MEDICARE, SELFPAY | PROVIDERS: PCP Nurse Practitioner Family; Visit Provider Nurse Practitioner Family | DX: N39.0 Urinary tract infection, site not specified (principal) | CPT/HCPCS: 81000; 87077; 87086; 87184 ==

== ENCOUNTER 2022-04-05 11:59 | Outpatient (CLI) | payer MEDICARE, SELFPAY ==
--- NOTE | 2022-04-05 12:07 | MM_ITS ---
WS: [id number] BILATERAL 3D TOMOSYNTHESIS DIGITAL SCREENING MAMMOGRAPHY WITH CAD CLINICAL INFORMATION: SCREEN HISTORY: Screening mammogram. LEFT breast soreness COMPARISON: TECHNIQUE: Bilateral CC and MLO views. FINDINGS: Scattered fibroglandular densities bilaterally. Punctate calcifications upper outer LEFT breast. Vasc ular calcification. No suspicious focal mass, asymmetry, calcifications, or architectural distortion. No evidence of malignancy. MM/[place] [id number] IMPRESSION: BI-RADS: 2-Benign FOLLOW UP: 1 Year Follow-up Recommend return to annual screening mammography.
--- NOTE | 2022-04-05 12:59 | XR_ITS ---
WS: [id number] KUB, AP view, 04/05/2022. Clinical Data: urolithiasis Comparison: None. Findings: No abnormal intraabdominal masses or calcifications are seen. There is no dilatated small bowel or ev idence of obstruction. There is a stent on the right side of the abdomen extending from the T12-L1 level to the L3-L4 level which may represent a biliary stent. There are clips in the right upper quadrant from a cholecystecto my. Fecal material is seen throughout the colon. There is a levoscoliosis with osteoarthritis of the lumbar spine. XR/XR KUB [id number] Impression: Negative for acute intra-abdominal abnormalities.
== END 2022-04-05 12:00 | disposition home or self-care (01) ==
PROVIDERS: PCP Nurse Practitioner Family; Visit Provider Nurse Practitioner Family
DX: Z12.31 Encounter for screening mammogram for malignant neoplasm of breast (principal); N20.9 Urinary calculus, unspecified
CPT/HCPCS: 74018; 77063; 77067

== ENCOUNTER → 2022-05-28 11:23 | Outpatient (BNVA) | payer MEDICARE, SELFPAY | PROVIDERS: PCP Nurse Practitioner Family; Visit Provider Nurse Practitioner Family | DX: N39.0 Urinary tract infection, site not specified (principal); L98.9 Disorder of the skin and subcutaneous tissue, unspecified; E07.9 Disorder of thyroid, unspecified | CPT/HCPCS: 81000 ==

== ENCOUNTER → 2022-06-04 10:32 | Outpatient (BNVA) | payer MEDICARE, SELFPAY | PROVIDERS: PCP Nurse Practitioner Family; Visit Provider Nurse Practitioner Family | DX: E07.9 Disorder of thyroid, unspecified (principal) | CPT/HCPCS: 84443 ==

== ENCOUNTER → 2022-06-09 09:11 | Outpatient (BNVA) | payer MEDICARE, SELFPAY | PROVIDERS: PCP Nurse Practitioner Family; Visit Provider Nurse Practitioner Family | DX: E07.9 Disorder of thyroid, unspecified (principal); E78.5 Hyperlipidemia, unspecified; K57.92 Diverticulitis of intestine, part unspecified, without perforation or abscess without bleeding | CPT/HCPCS: 80061; 84443 ==

== ENCOUNTER → 2022-12-17 10:41 | Outpatient (BNVA) | payer MEDICARE, SELFPAY | PROVIDERS: PCP Nurse Practitioner Family; Visit Provider Nurse Practitioner Family | DX: I50.9 Heart failure, unspecified (principal); I10 Essential (primary) hypertension; R07.9 Chest pain, unspecified | CPT/HCPCS: 80053; 80061; 84443 ==

== ENCOUNTER → 2022-12-29 13:13 | Outpatient (BNVA) | payer MEDICARE, SELFPAY | PROVIDERS: PCP Nurse Practitioner Family; Visit Provider Internal Medicine Cardiovascular Disease | DX: R07.9 Chest pain, unspecified (principal); R74.8 Abnormal levels of other serum enzymes; I10 Essential (primary) hypertension; I47.1 Supraventricular tachycardia; Z79.82 Long term (current) use of aspirin | CPT/HCPCS: 99214 ==

== ENCOUNTER 2023-01-16 18:21 | Emergency (ER) | payer MEDICARE, SELFPAY ==
[2023-01-16 18:26] VITALS: BP 135/84; PULSE 82; TEMP 36.6; O2SAT 95; BMI 28.6
--- NOTE | 2023-01-16 18:51 | XRR_ITS ---
PROCEDURE INFORMATION: Exam: XR Chest Exam date and time: 01/16/2023 7:26 PM Age: 78 years old Clinical indication: Shortness of breath; Additional info: SOB TECHNIQUE: Imaging protocol: Radiologic exam of the chest. Views: 1 view. COMPARISON: CR XR chest 1V portable [id number] 02/23/2022 3:18 PM FINDINGS: Lungs: Moderate COPD. Xvpe-lqslras-fmin-right hazy lung base densities are mildly progressed. Pleural spaces: Unremarkable. No pleural effusion. No pneumothorax. Heart/Mediastinum: The heart is upper limits normal size. Vasculature: Advanced diffuse vascular calcification noted. Bones/joints: Unremarkable. XR/XR chest 1V portable [id number] IMPRESSION: 1. Increasing areas of qczr-lfbsxea-ctiu-right patchy lung base atelectasis, scarring, edema, or pneumonitis. 2. COPD.
[2023-01-16 19:18] VITALS: PULSE 79; RESP 22; O2SAT 92
[2023-01-16] MEDS: ipratropium-albuterol 3 mL Neb INHALATION (19:18)
--- NOTE | 2023-01-16 19:18 | ECG_ITS ---
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 Measurements Intervals [place] Rate: 77 P: 31 [place]: 216 QRS: -19 QRSD: 81 T: 9 QT: 378 QTc: 428 Interpretive Statements SINUS RHYTHM WITH FIRST DEGREE AV BLOCK LOW QRS VOLTAGE IN PRECORDIAL LEADS [QRS DEFLECTION < 1.0 mV IN CHEST LEADS] POSSIBLE RIGHT VENTRICULAR CONDUCTION DELAY [RSR (QR) IN V1/V2] INFERIOR MYOCARDIAL INFARCTION , PROBABLY OLD [40+ ms Q WAVE AND/OR ST/T ABNORMALITY IN II/aVF] Compared to ECG 02/23/2022 19:24:19 First degree AV block now present Supraventricular rhythm no longer present Myocardial infarct finding still present Electronically Signed On 01-16-2023 22:35:27 CDT by Ajit Whitehead M.D. [email or web address].[email or web address]/[id number]
[2023-01-16 19:24] LABS: Basophils % 0.2 %; Hematocrit 42.1 % (37.0-47.0); Hemoglobin 13.9 g/dL (11.5-15.3); Lymphocytes # 0.8 10^3/uL (0.8-4.8); Mean Corpuscular Hemoglobin 28.1 pg (28.0-34.0); Mean Corpuscular Volume 85.2 fl (81-99); Mean Platelet Volume 9.9 fL (7.4-10.4); Monocytes # 0.2 10^3/uL (0.2-0.9); Monocytes % 3.9 %; Neutrophils # 3.14 10^3/uL (1.8-7.7); Neutrophils % 76.7 %; Nucleated Red Blood Cells % 0 %; Platelet Count 213 10^3/cmm (130-400); Red Blood Count 4.94 10^6/uL (4.1-5.3); White Blood Count 4.1 10^3/uL (4.0-10.0)
[2023-01-16 19:40] VITALS: PULSE 80; RESP 22; O2SAT 92
[2023-01-16 19:42] LABS: Lactic Sepsis W/Reflex 1.3 mmol/L (0.5-2.2)
--- NOTE | 2023-01-16 19:46 | W.ED.URI ---
HPI - URI/Sore Throat General: Chief Complaint: Upper Respiratory Infection Stated Complaint: cough,weakness Time Seen by Provider: 01/16/23 18:31 Source: patient History of Present Illness: 78-year-old female with cough and congestion for the last week. No fever. Cough is productive of minimal white sputum. No change in leg swelling. She has been congested with a runny nose as well. She saw her PCP earlier in the week and was given azithromycin. She has been taking Mucinex. This is without relief. MD elicited complaint: cough, rhinorrhea and nasal congestion Onset (ago): day(s) Consistency: constant Severity: moderate Description of mucous: yellow Able to tolerate fluids by mouth: Yes Exacerbating factors: exertion and supine positioning Relieving factors: nothing Context: sick contacts Associated symptoms: Reports congestion, cough, diarrhea, nasal congestion, rhinorrhea and short of breath; Deny abdominal pain, chest pain, epistaxis, fever(s), sinus pain, stiffness or vomiting Review of Systems Const: Denies: fever(s) ENMT: Reports: nasal congestion; Denies: throat pain, epistaxis or sinus pain Card: Denies: chest pain Resp: Reports: dyspnea and productive cough; Denies: wheezing GI: Reports: diarrhea; Denies: abdominal pain or vomiting [facility] ED PFSH: Medical History HTN (hypertension) Osteoarthritis SVT (supraventricular tachycardia) Thyroid disease Surgical History S/P cholecystectomy S/P hysterectomy S/P tubal ligation Family History Mother Heart disease Brother Heart disease Stroke Social History Smoking and tobacco status: never smoked Alcohol intake: never Current gender identity: Female Physical Exam Const: COMMON NORMALS: no acute distress GENERAL APPEARANCE: cooperative; not ill appearing and not frail appearing HENMT: COMMON NORMALS: normocephalic, atraumatic and Normal external nose present HEAD & SCALP: normocephalic and atraumatic FACE & SINUS: normal facial exam and face symmetric NOSE: Normal external nose present Eye: COMMON NORMALS: Equal, round and reactive pupils present and EOMs intact bilaterally PUPIL: Yes Equal, round and reactive pupils present Neck/C-Spine: GENERAL: Yes trachea midline Chest: CHEST: Yes Symmetrical chest wall rise Resp: COMMON NORMALS: normal respiratory effort, No retractions and No use of accessory muscles AUSCULTATION: rhonchi right lower Cardio: COMMON NORMALS: regular rate and regular rhythm RATE: regular rate RHYTHM: regular rhythm GI: COMMON NORMALS: Normal to inspection, nondistended, normoactive bowel sounds present Extremity: COMMON NORMALS: no pedal edema Neuro: VAUGHN COMA SCALE: document GCS findings [place] coma scale eye opening: Spontaneous Vaughn coma scale verbal response: Orientated [place] coma scale motor response: Obey commands [place] coma scale total score: 15 SENSORY EXAM: Yes extremities (intact) Psych: COMMON NORMALS: speech normal SPEECH: Yes normal speech Skin: COMMON NORMALS: no rashes or lesions noted GENERAL SKIN EXAM: no rashes or lesions noted Course Vital Signs: Vital signs: Vital Signs Temperature 97.9 F 01/16/23 18:26 Pulse Rate 79 01/16/23 19:49 Respiratory Rate 23 H 01/16/23 19:49 Blood Pressure 137/80 01/16/23 19:49 Pulse Oximetry 94 01/16/23 19:49 Oxygen Delivery Me thod 01/16/23 19:49 Oxygen Flow Rate 2 01/16/23 19:49 MDM - URI/Sore Throat Medical Decision Making X-ray shows bilateral pneumonitis/pneumonia. COVID antigen is negative. White blood cell count is 4.1. Hemoglobin is 14. Lactic acid is 1.3. CRP is only 8. Other laboratory is not remarkable. She will be treated with inhaler, cough suppressant, antibiotics, and steroids. She is improved after breathing treatment here. Will discharge for return for worsening symptoms. Lab Data 01/16/23 19:00 01/16/23 19:00 Radiology Impressions Chest X-Ray 01/16/23 18:51 IMPRESSION: 1. Increasing areas of rnqq-aqfmsrb-krwj-right patchy lung base atelectasis, scarring, edema, or pneumonitis. 2. COPD. Laboratory Results WBC 4.1 10^3/uL (4.0-10.0) 01/16/23 19:00 RBC 4.94 10^6/uL (4.1-5.3) 01/16/23 19:00 Hgb 13.9 g/dL (11.5-15.3) 01/16/23 19:00 Hct 42.1 % (37.0-47.0) 01/16/23 19:00 MCV 85.2 fl (81-99) 01/16/23 19:00 MCH 28.1 pg (28.0-34.0) 01/16/23 19: MCHC 33.0 g/dL (30.0-36.0) 01/16/23 19: RDW 12.0 % (12.1-15.1) L 01/16/23 19:00 Plt Count 213 10^3/cmm (130-400) 01/16/23 19:00 MPV 9.9 fL (7.4-10.4) 01/16/23 19:00 Neut % (Auto) 76.7 % 01/16/23 19:00 Lymph % (Auto) 19.0 % 01/16/23 19: Bremer % (Auto) 3.9 % 01/16/23 19:00 Eos % (Auto) 0.0 % 01/16/23 19:00 Baso % (Auto) 0.2 % 01/16/23 19:00 Neut # (Auto) 3.14 10^3/uL (1.8-7.7) 01/16/23 19:00 Lymph # (Auto) 0.8 10^3/uL (0.8-4.8) 01/16/23 19:00 Bremer # (Auto) 0.2 10^3/uL (0.2-0.9) 01/16/23 19:00 Eos # (Auto) 0.0 10^3/uL (0.0-0.8) 01/16/23 19:00 Baso # (Auto) 0.0 10^3/uL (0.0-0.1) 01/16/23 19:00 Nucleated RBC % (auto) 0 % 01/16/23 19:00 Nucleated RBCs # 0.0 /100WBC 01/16/23 19:00 Sodium 140 mmol/L (136-145) 01/16/23 19:00 Potassium 4.2 mmol/L (3.5-5.1) 01/16/23 19:00 Chloride 105 mmol/L (98-107) 01/16/23 19:00 Carbon Dioxide 22 mmol/L (22-29) 01/16/23 19:00 Anion Gap 17.2 (5-19) 01/16/23 19:00 BUN 20 mg/dL (8-23) 01/16/23 19:00 Creatinine 0.6 mg/dL (0.5-0.9) 01/16/23 19:00 GFR Calculation Not Reportable 01/16/23 19:00 Glucose 123 mg/dL (65-115) H 01/16/23 19:00 Calculated Osmolality 294 mOsm/kg (285-295) 01/16/23 19:00 Lactic Acid 1.3 mmol/L (0.5-2.2) 01/16/23 19:00 Calcium 8.7 mg/dL (8.5-10.5) 01/16/23 19:00 Total Bilirubin 0.3 mg/dL (0.15-1.2) 01/16/23 19:00 AST 16 U/L (0-32) 01/16/23 19:00 ALT 13 U/L (0-33) 01/16/23 19:00 Alkaline Phosphatase 73 U/L (35-105) 01/16/23 19:00 C-Reactive Protein 8.0 mg/L (0.0-4.9) H 01/16/23 19:00 NT-Pro-B Natriuret Pep 58 pg/mL (0-450) 01/16/23 19:00 Total Protein 7.5 g/dL (6.6-8.7) 01/16/23 19:00 Albumin 4.1 g/dL (3.5-5.2) 01/16/23 19:00 Globulin 3.4 g/dL (1.3-4.6) 01/16/23 19:00 SARS-CoV-2 Ag (Rapid) negative (Negative) 01/16/23 19:06 Discharge Plan Discharge Patient Disposition: Home Clinical Impression: Pneumonia Condition: Stable Prescriptions: New Medrol (Figueroa) 4 mg tablets,dose pack See Rx Instructions .ROUTE .COMPLEX Qty: 21 0RF Rx Instructions: orally per package directions albuterol sulfate 90 mcg/actuation HFA aerosol inhaler 2 inh INHALATION Q4H PRN (Reason: shortness of breath or wheezing) Qty: 6.7 1RF doxycycline hyclate 100 mg capsule 100 mg PO BID 7 Days Qty: 14 0RF codeine-guaifenesin 10-100 mg/5 mL liquid 5 ml PO Q6H PRN (Reason: cough) Qty: 120 0RF No Action aspirin 325 mg tablet 325 mg PO QAM carvedilol 12.5 mg tablet 12.5 mg PO BID Rx Instructions: must administer with a meal/food; 340B pantoprazole 20 mg tablet,delayed release (DR/EC) 40 mg PO DAILY meloxicam 7.5 mg tablet See Rx Instructions .ROUTE .COMPLEX Qty: 30 0RF Dose Instruction: TAKE 1 TABLET BY MOUTH DAILY NEEDED FOR OSTEOARTHRITIS Rx Instructions: TAKE 1 TABLET BY MOUTH DAILY NEEDED FOR OSTEOARTHRITIS azithromycin [Zithromax Z-Figueroa] 250 mg tablet See Rx Instructions PO .COMPLEX Qty: 6 0RF Rx Instructions: For 250 mg dose pack: take 500 mg today (day 1), then 250 mg for 4 days (days 2-5) PO propylthiouracil 50 mg tablet See Rx Instructions .ROUTE .COMPLEX Qty: 45 0RF Dose Instruction: TAKE 1/2 TABLET BY MOUTH EVERY MORNING Rx Instructions: TAKE 1/2 TABLET BY MOUTH EVERY MORNING furosemide 20 mg tablet See Rx Instructions .ROUTE .COMPLEX Qty: 90 0RF Dose Instruction: TAKE 1 TABLET BY MOUTH DAILY NEEDED FOR SWELLING Rx Instructions: TAKE 1 TABLET BY MOUTH DAILY NEEDED FOR SWELLING amlodipine 5 mg tablet 5 mg PO BID Discharge Orders: Discharge ED (Routine); Ordered 01/16/23 Ordered By: Bijan Stevens Referrals: Racquel Garvey FNP [Primary Care Provider] - 1-3 days Patient Instructions: Pneumonia (ED) Activity Restrictions/Additional Instructions: You may finish your prior antibiotic. New medications as directed. Stop your Mucinex in favor of the cough syrup prescribed. Return for worsening shortness of breath, fever despite 2-3 doses of antibiotics, any other concerning symptoms. Use the inhaler every 4 hours while awake for the next 48 hours, then as needed. Coding Level of Care Code ED Nitroglycerin Nitrator Operator Batch for Tammi Mon
[2023-01-16 19:49] VITALS: BP 137/80; PULSE 79; RESP 23; O2SAT 94
[2023-01-16 19:51] LABS: SARS Covid-2 Antigen negative (Negative)
[2023-01-16 19:54] LABS: Alanine Aminotransferase 13 U/L (0-33); Albumin Level 4.1 g/dL (3.5-5.2); Alkaline Phosphatase 73 U/L (35-105); Anion Gap 17.2 (5-19); Aspartate Amino Transferase 16 U/L (0-32); Blood Urea Nitrogen 20 mg/dL (8-23); Calcium 8.7 mg/dL (8.5-10.5); Carbon Dioxide 22 mmol/L (22-29); Chloride 105 mmol/L (98-107); Globulin 3.4 g/dL (1.3-4.6); Glucose 123 mg/dL (65-115); NT Pro B Type Natriuretic Pept 58 pg/mL (0-450); Osmolality Calculated 294 mOsm/kg (285-295); Potassium 4.2 mmol/L (3.5-5.1); Sodium 140 mmol/L (136-145); Total Bilirubin 0.3 mg/dL (0.15-1.2); Total Protein 7.5 g/dL (6.6-8.7)
[2023-01-16] MEDS: doxycycline 100 mg Tablet PO (20:19)
== END 2023-01-16 20:32 | disposition home or self-care (01) ==
PROVIDERS: Emergency Provider Emergency Medicine; PCP Nurse Practitioner Family
DX: J18.9 Pneumonia, unspecified organism (principal); Z20.822 Contact with and (suspected) exposure to COVID-19; Z79.82 Long term (current) use of aspirin; J44.0 Chronic obstructive pulmonary disease with (acute) lower respiratory infection; I10 Essential (primary) hypertension
CPT/HCPCS: 36415; 71045; 80053; 83605; 83880; 85025; 86140; 87040; 87426; 93005; 94640; 96374; 99285; J2930

== ENCOUNTER 2023-02-04 10:25 | Outpatient (CLI) | payer MEDICARE, SELFPAY ==
--- NOTE | 2023-02-04 | ECG_ITS ---
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 Interpretive Statements NAME OF STUDY: LEXISCAN SESTAMIBI STRESS TEST INDICATION: [Chest Pain, abn ekg, ] Procedure: At the baseline, the blood pressure was 122/75 mmHg with a heart rate of 76 bpm. The electrocardiogram showed normal sinus rhythm, right bundle branch block with normal ST and T's. The Lexiscan was infused over a period of 20 seconds. A total of 0.4 mg of Lexiscan was infused. The stress phase was continued for a total of 5 minutes. Heart rate was at the end of stress phase was 93 bpm and a blood pressure of 130/70 mmHg. The EKG at the peak infusion revealed normal sinus rhythm with no significant ST-T wave changes. Sestamibi was injected 20 seconds after the Lexiscan infusion. Blood pressure at the end of recovery phase was 118/60 mmHg with a heart rate of 88 bpm. Conclusion: 1. Normal EKG response to Lexiscan infusion 2. No Lexiscan induced chest pain or cardiac arrhythmia. 3. Normal blood pressure and heart rate response. 4. Sestamibi/sestamibi perfusion scan pending; see separate report. Electronically Signed On 02-05-2023 13:10:33 CDT by Ajit Whitehead M.D. [id number]
[2023-02-04 10:54] VITALS: BMI 27.4
--- NOTE | 2023-02-04 11:00 | NMCV_ITS ---
NM gary perf SPECT r/s* [id number] Judy Burgos Age: 78 Gender: F : 1945 Exam Date: 02/04/2023 11:29 Ordering Phys: Marco Alicia MD ([email or web address]) Technologist: CARSON Andrews Exam Location: [facility] Indications: Chest pain STRESS TEST Please see separate stress test report in [facility] for full findings IMAGE PROTOCOL Rest/Stress 1 Lexiscan Day Radiopharmaceutical Dose (mCi) Administration Site Administered by Rest: Tc-99m 10.8 IV CARSON Cali Sestamibi Stress:Tc-99m 31.2 IV CARSON Andrews Sestamimarisol Rest: 04-Feb-2023 60 Discovery 630 Stress: 04-Feb-2023 30 Discovery 630 0.4mg Lexiscan. Images obtained in supine and prone position. SPECT RESULTS Technical Quality: Excellent Raw Data Analysis: Normal, Breast attenuation Image Corrections: No attenuation or motion correction applied Summed Stress Score: 2 Summed Rest Score: 6 Summed Difference Score: 0 PERFUSION FINDINGS SPECT images demonstrate homogeneous tracer distribution throughout the myocardium. FUNCTIONAL RESULTS (calculated via Gated SPECT) Stress Image LV EF (%): 77 Stress EDV (mL):64 TID: 1.04 Stress ESV (mL):15 FUNCTIONAL FINDINGS: There is normal left ventricular systolic function. IMPRESSIONS 1. Normal myocardial perfusion imaging with no evidence of ischemia 2. LV systolic function is normal Ajit Whitehead MD (Electronically Signed) Final Date: 04 February 2023 13:48 S
[2023-02-04 12:19] VITALS: BP 118/67; PULSE 90
[2023-02-04] MEDS: regadenoson 0.4 Mg/5 ml Syringe IVP (12:19)
== END 2023-02-04 10:26 | disposition home or self-care (01) ==
PROVIDERS: PCP Nurse Practitioner Family; Visit Provider Internal Medicine Cardiovascular Disease
DX: R07.9 Chest pain, unspecified (principal); R94.39 Abnormal result of other cardiovascular function study
CPT/HCPCS: 36415; 78452; 93017; 96374; A9500; J2785

== ENCOUNTER 2023-02-26 08:38 | Outpatient (CLI) | payer MEDICARE, SELFPAY ==
--- NOTE | 2023-02-26 09:00 | CT_ITS ---
WS: [id number] LDCT LUNG CANCER SCREENING TECHNIQUE: Noncontrast CT of the chest with coronal and sagittal reformatted images. CLINICAL INFORMATION: Z87.891 - Personal history of nicotine dependence COMPARISON: None. DLP: 54.30 mGy.cm DIvol: Mean CTDIvol: 1.20 (mGy) All CT scans at [facility] use at least one of these dose optimization techniques: automat ed exposure control; mA and/or kV adjustment per patient size (includes targeted exams where dose is matched to clinical indication); or iterative reconstruction. FINDINGS: Diffuse interstitial thickening throughout both lungs. Hyperinflation. Scattered hazy groundglass ret icular opacities suspicious for interstitial lung disease. Perihilar bronchiectasis. Normal caliber t horacic aorta. Prominent mediastinal lymph nodes likely reactive. Coronary calcification. Adrenal gla nds are normal. Normal GE junction. Mild thoracic curve. CT/CT lung screening [id number] IMPRESSION: Findings suspicious for interstitial lung disease. Consider pulmona ry consult for further evaluation. LUNG-RADS: 2S-Benign Appearance or Behavior with Significant Findings FOLLOW UP: 12 Month: Continue annual screening with LDCT
== END 2023-02-26 08:39 | disposition home or self-care (01) ==
PROVIDERS: PCP Nurse Practitioner Family; Visit Provider Nurse Practitioner Family
DX: Z12.2 Encounter for screening for malignant neoplasm of respiratory organs (principal); Z87.891 Personal history of nicotine dependence
CPT/HCPCS: 71271

== ENCOUNTER → 2023-04-28 10:33 | Outpatient (BNVA) | payer MEDICARE, SELFPAY | PROVIDERS: PCP Nurse Practitioner Family; Visit Provider Nurse Practitioner Family | DX: I10 Essential (primary) hypertension (principal); E07.9 Disorder of thyroid, unspecified; E03.9 Hypothyroidism, unspecified | CPT/HCPCS: 80053; 80061; 84443 ==

== ENCOUNTER → 2023-05-09 15:55 | Outpatient (BNVA) | payer MEDICARE, SELFPAY | PROVIDERS: PCP Nurse Practitioner Family; Visit Provider Internal Medicine Pulmonary Disease | DX: J84.9 Interstitial pulmonary disease, unspecified (principal); J18.9 Pneumonia, unspecified organism; R53.81 Other malaise; R53.83 Other fatigue; E07.9 Disorder of thyroid, unspecified; R06.02 Shortness of breath | CPT/HCPCS: 36415; 84182; 85651; 86140; 86160; 86162; 86200; 86235; 86255; 86331; 86376; 86606; 86609; 99204 ==

== ENCOUNTER 2023-05-20 09:07 | Outpatient (CLI) | payer MEDICARE, SELFPAY ==
--- NOTE | 2023-05-20 09:30 | CT_ITS ---
WS: [id number] CT CHEST CT-HIGH RESOLUTION, NONCONTRAST. HISTORY: Interstitial lung disease. Technique: High-resolution chest CT is performed in inspiration, expiration, supine and prone positio vishal. All CT scans at [facility] use at least one of these dose optimization techniques: automated exposure control; mA and/or kV adjustment per patient size (includes targeted exams where dose is mat ched to clinical indication); or iterative reconstruction. DLP: 964.59 mGy.cm COMPARISON: Lung screening CT 02/26/2023 and 02/23/2022 lung bases. Findings: As noted on the prior CT of 02/26/2023 there bilateral multilobar areas of interstitial thick ening. Predominantly within a peribronchial distribution with more prominent interstitial thickening in the periphery of the upper and lower lobes. Distribution may be slightly greater in the upper lobe s. There are changes of mild bronchiectasis. No honeycombing is identified. There is mild traction di stortion of the lungs. There are a few peripheral cyst but these are not in a distribution or multila yered to suggest typical honeycombing seen with UIP. No dense areas of consolidation. No change in appearance of lungs on prone imaging. Very minimal change during expiration. No signific ant mosaic attenuation or air trapping. Prior cholecystectomy. No adrenal mass. Small hiatal hernia. Normal size heart. There are a few media stinal and hilar lymph nodes which are slightly greater than expected in number. These may be related to the patient's chronic interstitial lung disease. CT/CT chest wo con [id number] Impression: 1. Pulmonary findings of interstitial disease are not typical appearance for U IP. Distribution and chronic changes more suggestive of a hypersensitivity pneu monitis or an outside PET. No honeycombing of any significance. Interstitial ch anges are diffuse but slightly greater in the upper lobes. 2. Mild mediastinal and hilar prominent lymph nodes probably reactive.
== END 2023-05-20 09:08 | disposition home or self-care (01) ==
PROVIDERS: PCP Nurse Practitioner Family; Visit Provider Internal Medicine Pulmonary Disease
DX: J84.9 Interstitial pulmonary disease, unspecified (principal)
CPT/HCPCS: 71250

== ENCOUNTER → 2023-07-25 09:50 | Outpatient (BNVA) | payer MEDICARE, SELFPAY | PROVIDERS: PCP Nurse Practitioner Family; Visit Provider Internal Medicine Pulmonary Disease | DX: J84.9 Interstitial pulmonary disease, unspecified (principal); M25.511 Pain in right shoulder; M25.512 Pain in left shoulder; Z87.891 Personal history of nicotine dependence; J43.9 Emphysema, unspecified; M25.551 Pain in right hip; M25.552 Pain in left hip; M19.041 Primary osteoarthritis, right hand; M19.042 Primary osteoarthritis, left hand | CPT/HCPCS: 99214 ==

== ENCOUNTER → 2023-08-26 15:34 | Outpatient (BNVA) | payer MEDICARE, SELFPAY | PROVIDERS: PCP Nurse Practitioner Family; Visit Provider Nurse Practitioner Family | DX: N39.0 Urinary tract infection, site not specified (principal) | CPT/HCPCS: 81000 ==

== ENCOUNTER → 2023-09-30 11:15 | Outpatient (BNVA) | payer MEDICARE, SELFPAY | PROVIDERS: PCP Nurse Practitioner Family; Visit Provider Internal Medicine Cardiovascular Disease | DX: I11.0 Hypertensive heart disease with heart failure (principal); I50.9 Heart failure, unspecified; Z87.891 Personal history of nicotine dependence | CPT/HCPCS: 99214 ==

== ENCOUNTER → 2023-10-14 09:01 | Outpatient (BNVA) | payer MEDICARE, SELFPAY | PROVIDERS: PCP Nurse Practitioner Family; Visit Provider Internal Medicine Pulmonary Disease | DX: J84.9 Interstitial pulmonary disease, unspecified (principal); M25.511 Pain in right shoulder; M25.512 Pain in left shoulder; Z87.891 Personal history of nicotine dependence; J43.2 Centrilobular emphysema; J47.9 Bronchiectasis, uncomplicated | CPT/HCPCS: 99214 ==

== ENCOUNTER → 2023-11-18 10:50 | Outpatient (BNVA) | payer MEDICARE, SELFPAY | PROVIDERS: PCP Nurse Practitioner Family; Visit Provider Nurse Practitioner Family | DX: E03.9 Hypothyroidism, unspecified (principal); I10 Essential (primary) hypertension | CPT/HCPCS: 80053; 84439; 84443; 84481 ==

== ENCOUNTER 2023-11-29 09:44 | Outpatient (CLI) | payer MEDICARE, SELFPAY | END 2023-11-29 09:45 | disposition home or self-care (01) | PROVIDERS: PCP Nurse Practitioner Family; Visit Provider Internal Medicine Pulmonary Disease | DX: R06.02 Shortness of breath (principal) | CPT/HCPCS: 94010; 94618; 94726; 94729 ==

== ENCOUNTER → 2023-12-19 09:55 | Outpatient (BNVA) | payer MEDICARE, SELFPAY | PROVIDERS: PCP Nurse Practitioner Family; Visit Provider Nurse Practitioner Family | DX: I10 Essential (primary) hypertension (principal); Z87.891 Personal history of nicotine dependence | CPT/HCPCS: 99213 ==

== ENCOUNTER 2024-01-02 17:23 | Emergency (ER) | payer MEDICARE, SELFPAY ==
[2024-01-02 17:28] VITALS: BP 154/81; PULSE 76; RESP 18; TEMP 36.7; O2SAT 93; BMI 28.3
--- NOTE | 2024-01-02 17:46 | CTR_ITS ---
PROCEDURE INFORMATION: Exam: CT Head Without Contrast Exam date and time: 01/02/2024 6:07 PM Age: 78 years old Clinical indication: Injury or trauma; Fall; Other: Swelling to right eye; Additional info: Fall head trauma TECHNIQUE: Imaging protocol: Computed tomography of the head without contrast. Radiation optimization: All CT scans at this facility use at least one of these dose optimization techniques: automated exposure control; mA and/or kV adjustment per patient size (includes targeted exams where dose is matched to clinical indication); or iterative reconstruction. COMPARISON: No relevant prior studies available. RADIATION DOSE METRICS: Total DLP (mGy-cm): 1054.58 FINDINGS: Brain: No hemorrhage. No edema. Mild diffuse cerebral atrophy. No significant white matter disease. No mass effect. Cerebral ventricles: No ventriculomegaly. Paranasal sinuses: Visualized sinuses are unremarkable. No fluid levels. Mastoid air cells: Visualized mastoid air cells are well aerated. Bones/joints: Unremarkable. No acute fracture. Soft tissues: Right periorbital hematoma. CT/CT head wo con* [id number] IMPRESSION: No acute intracranial abnormality.
--- NOTE | 2024-01-02 19:40 | XRR_ITS ---
PROCEDURE INFORMATION: Exam: XR Right Knee Exam date and time: 01/02/2024 7:53 PM Age: 78 years old Clinical indication: Injury or trauma; Fall; Other: Pain from impact; Injury details: PT fell on concrete several hours ago, C/O pain in right knee and right hand. HX of arthritis in hands; Additional info: Fall pain TECHNIQUE: Imaging protocol: Radiologic exam of the right knee. Views: 3 views. COMPARISON: CR XR knees AP WB w RT lmt ORTH 06/13/2017 2:05 PM FINDINGS: Bones/joints: Normal. Soft tissues: Soft tissue swelling in the anterior knee. XR/XR knee RT 3V* [id number] IMPRESSION: No acute osseous abnormalities.
--- NOTE | 2024-01-02 19:40 | XRR_ITS ---
PROCEDURE INFORMATION: Exam: XR Right Hand Exam date and time: 01/02/2024 7:53 PM Age: 78 years old Clinical indication: Injury or trauma; Fall; Other: Pain from impact; Additional info: Fall pain TECHNIQUE: Imaging protocol: Radiologic exam of the right hand. Views: 3 or more views. COMPARISON: No relevant prior studies available. FINDINGS: Bones/joints: Osseous structures are intact. Negative for fracture. Soft tissues: Normal. XR/XR hand RT min 3V* [id number] IMPRESSION: No acute findings.
--- NOTE | 2024-01-02 19:41 | W.ED.HEATRA ---
HPI - Head Injury General: Chief complaint: Head Injury Stated complaint: fall hit head Time Seen by Provider: 01/02/24 19:33 History of Present Illness: Patient presents to the ER with complaints of tripping over a ledge falling and hitting her head on the concrete. Patient also complaining of right hand and right knee pain. Patient has a large goose egg over her right eye which is very swollen, almost swollen shut. Patient is unsure if she had loss of consciousness. Patient denies being on blood thinners. Review of Systems General: Reports: 10 or more systems reviewed and unremarkable except in HPI and below PFSH ED PFSH: Medical History Osteoarthritis Thyroid disease SVT (supraventricular tachycardia) HTN (hypertension) Surgical History S/P tubal ligation S/P cholecystectomy S/P hysterectomy Family History Mother Heart disease Brother Heart disease Stroke Social History Smoking and tobacco/nicotine status: former use of tobacco/nicotine Quit status (tobacco/nicotine): has quit using Year quit tobacco: 1986 Former quit date comment: 1 ppd X 20 years Alcohol intake: never Substance/Drug Use: never Current gender identity: Female Physical Exam Const: COMMON NORMALS: no acute distress, average body habitus, patient oriented x3, no limitations, healthy appearing, alert and well nourished HENMT: COMMON NORMALS: normocephalic, hearing grossly normal bilaterally, external ears normal, Normal external nose present, moist oral mucous membranes and oropharynx normal; head/scalp not atraumatic (Large hematoma and swelling in right eyebrow eyelid area, abrasion right ch) HEAD & SCALP: normocephalic; not atraumatic (Large hematoma and swelling in right eyebrow eyelid area, abrasion right ch) NOSE: Normal external nose present EXTERNAL EAR: Yes external ears normal Neck/C-Spine: COMMON NORMALS: full ROM, no lymphadenopathy, supple, no meningeal signs, no JVD and Thyroid normal THYROID: Thyroid normal Chest: COMMONS NORMALS: normal inspection of the chest and normal palpation of entire chest wall Resp: COMMON NORMALS: normal respiratory effort, No retractions, No use of accessory muscles and clear to auscultation bilaterally AUSCULTATION: clear to auscultation bilaterally Cardio: COMMON NORMALS: no JVD, regular rate, regular rhythm, S1 normal heart sound present, S2 normal heart sound present, No gallops present (Cardio), No clicks present (Cardio), No murmurs present (Cardio) and No rub (Cardio) RATE: regular rate RHYTHM: regular rhythm HEART SOUNDS: S1 normal heart sound present and S2 normal heart sound present GI: COMMON NORMALS: Normal to inspection, nondistended, normoactive bowel sounds present, Soft to palpation, non-tender, No hepatosplenomegaly present and no masses PALPATION: Yes Soft to palpation and Yes No hepatosplenomegaly present Extremity: NARRATIVE EXTREMITY EXAM: Pain with palpation mild swelling over right hand and right knee Region. Neuro: COMMON NORMALS: patient oriented x3 SENSORIUM/ORIENTATION: Yes alert MENINGEAL SIGNS: Yes no meningeal signs Course Vital Signs: Vital signs: Vital Signs Temperature 98.1 F 01/02/24 17:28 Pulse Rate 82 01/02/24 20:46 Respiratory Rate 18 01/02/24 17:28 Blood Pressure 185/100 01/02/24 20:46 Pulse Oximetry 98 01/02/24 20:46 Oxygen Delivery Me thod Room Air 01/02/24 17:28 MDM - Head Injury Medcial Decision Making X-rays performed on right hand and right knee which showed no acute abnormalities, head CT showed no acute intracranial abnormalities, these results was discussed with the patient and her family. Patient be discharged home. Differential Diagnosis Unlikely concussion without loss of consciousness, epidural hematoma, closed head injury, subarachnoid hematoma, postconcussion syndrome, subdural hematoma or concussion with loss of consciousness Medical Records I reviewed the patient's medical records. Lab Data I reviewed the patient's lab results. Radiology Impressions Head CT 01/02/24 17:46 IMPRESSION: No acute intracranial abnormality. Hand X-Ray 01/02/24 19:40 IMPRESSION: No acute findings. Knee X-Ray 01/02/24 19:40 IMPRESSION: No acute osseous abnormalities. All radiology interpretation(s) finalized by discharge Discharge Plan Discharge Patient Disposition: Home Clinical Impression: Pain in right hand Fall Qualifiers: Encounter type: initial encounter Qualified Code(s): W19.XXXA - Unspecified fall, initial encounter Contusion of face Qualifiers: Encounter type: initial encounter Qualified Code(s): S00.83XA - Contusion of other part of head, initial encounter Knee pain, right Qualifiers: Chronicity: acute Qualified Code(s): M25.561 - Pain in right knee Condition: Stable Prescriptions: No Action aspirin 325 mg tablet 325 mg PO QAM albuterol sulfate 0.63 mg/3 mL solution for nebulization 0.63 mg inhalation Q6H Qty: 90 1RF propylthiouracil 50 mg tablet See Rx Instructions .ROUTE .COMPLEX Qty: 45 1RF Dose Instruction: TAKE 1/2 TABLET BY MOUTH EVERY MORNING DAILY Rx Instructions: TAKE 1/2 TABLET BY MOUTH EVERY MORNING DAILY carvedilol 12.5 mg tablet 12.5 mg PO .COMPLEX Qty: 180 2RF Rx Instructions: 25 mg in am & 12.5 mg orally; Changed dose changed per cardiology 09/28/23 (DME) Acapella See Rx Instructions .Route .MEDSUPPLY Qty: 1 0RF Rx Instructions: As directed guaifenesin 100 mg/5 mL liquid 200 mg PO BID PRN (Reason: cough) Qty: 473 0RF meloxicam 7.5 mg tablet See Rx Instructions .ROUTE .COMPLEX Qty: 90 0RF Dose Instruction: TAKE 1 TABLET BY MOUTH DAILY NEEDED FOR OSTEOARTHRITIS Rx Instructions: TAKE 1 TABLET BY MOUTH DAILY NEEDED FOR OSTEOARTHRITIS albuterol sulfate 90 mcg/actuation HFA aerosol inhaler 2 inh INHALATION Q4H PRN (Reason: shortness of breath or wheezing) Qty: 6.7 1RF pantoprazole 20 mg tablet,delayed release (DR/EC) See Rx Instructions .ROUTE .COMPLEX Qty: 90 0RF Dose Instruction: TAKE 1 TABLET BY MOUTH DAILY Rx Instructions: TAKE 1 TABLET BY MOUTH DAILY furosemide 20 mg tablet See Rx Instructions .ROUTE .COMPLEX Qty: 90 0RF Dose Instruction: TAKE 1 TABLET BY MOUTH DAILY NEEDED FOR SWELLING Rx Instructions: TAKE 1 TABLET BY MOUTH DAILY NEEDED FOR SWELLING Discharge Orders: Discharge ED (Routine); Ordered 01/02/24 Ordered By: Kev Waldrop Referrals: Racquel Garvey FNP [Primary Care Provider] - 1 week Patient Instructions: Black Eye (ED), Facial Contusion (ED) Activity Restrictions/Additional Instructions: Your x-rays and CT scans were read off as negative for acute changes. Please continue to use Tylenol as needed for pain. I would hold off on the aspirin or the meloxicam for couple days as these may increase the bleeding. Please follow-up with your family practice doctor the next 7 days for further evaluation and treatment if needed. 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
[2024-01-02 20:46] VITALS: BP 185/100; PULSE 82; O2SAT 98
== END 2024-01-02 20:47 | disposition home or self-care (01) ==
PROVIDERS: Emergency Provider Emergency Medicine; PCP Nurse Practitioner Family
DX: S00.83XA Contusion of other part of head, initial encounter (principal); M25.561 Pain in right knee; M79.641 Pain in right hand; Z79.82 Long term (current) use of aspirin; I10 Essential (primary) hypertension; Z87.891 Personal history of nicotine dependence; W18.09XA Striking against other object with subsequent fall, initial encounter
CPT/HCPCS: 70450; 73130; 73562; 99284

== ENCOUNTER → 2024-02-13 08:01 | Outpatient (BNVA) | payer MEDICARE, SELFPAY | PROVIDERS: PCP Nurse Practitioner Family; Visit Provider Internal Medicine Pulmonary Disease | DX: J84.9 Interstitial pulmonary disease, unspecified (principal); M25.511 Pain in right shoulder; M25.512 Pain in left shoulder; Z87.891 Personal history of nicotine dependence; J43.2 Centrilobular emphysema; J47.9 Bronchiectasis, uncomplicated | CPT/HCPCS: 99214 ==

== ENCOUNTER 2024-05-01 09:01 | Outpatient (CLI) | payer MEDICARE, SELFPAY ==
--- NOTE | 2024-05-01 09:15 | CT_ITS ---
WS: [id number] LDCT LUNG CANCER SCREENING TECHNIQUE: Noncontrast CT of the chest with coronal and sagittal reformatted images. CLINICAL INFORMATION: Cancer Screen COMPARISON: CT chest 05/20/2023 and 02/26/2023 DLP: 56.20 mGy.cm DIvol: Mean CTDIvol: 1.20 (mGy) All CT scans at [facility] use at least one of these dose optimization [id number]: autom ated exposure control; mA and/or kV adjustment per patient size (includes targeted exams where dose i s matched to clinical indication); or iterative reconstruction. FINDINGS: Diffuse chronic interstitial thickening similar to the prior studies suspicious for chronic interstitial lung disease. No honeycombing. Perihilar bronchiectasis unchanged. No new suspicious pu lmonary parenchymal opacities. Normal caliber thoracic aorta. Aortic calcification. Coronary calcification. Prominent anterior spina l and paratracheal lymph nodes similar to previous. Tiny esophageal hernia. Splenic artery calcification. No axillary lymphadenopathy. Nodular thyroid is thmus. Mild thoracic kyphosis. CT/CT lung screening [id number] IMPRESSION: LUNG-RADS: 2-Benign Appearance or Behavior FOLLOW UP: 12 Month: Continue annual screening with LDCT
== END 2024-05-01 09:02 | disposition home or self-care (01) ==
LOC: RAD 09:02
PROVIDERS: PCP Nurse Practitioner Family; Visit Provider Internal Medicine Pulmonary Disease
DX: Z12.2 Encounter for screening for malignant neoplasm of respiratory organs (principal); Z87.891 Personal history of nicotine dependence; J47.9 Bronchiectasis, uncomplicated; R91.8 Other nonspecific abnormal finding of lung field; E04.1 Nontoxic single thyroid nodule; M40.204 Unspecified kyphosis, thoracic region
CPT/HCPCS: 71271

== ENCOUNTER → 2024-06-13 12:22 | Outpatient (BNVA) | payer MEDICARE, SELFPAY | PROVIDERS: PCP Nurse Practitioner Family; Visit Provider Internal Medicine | DX: I11.0 Hypertensive heart disease with heart failure (principal); I50.9 Heart failure, unspecified; M19.90 Unspecified osteoarthritis, unspecified site; I47.10 Supraventricular tachycardia, unspecified | CPT/HCPCS: 99214 ==

== ENCOUNTER → 2024-10-05 11:30 | Outpatient (BNVA) | payer MEDICARE, SELFPAY | PROVIDERS: PCP Nurse Practitioner Family; Visit Provider Nurse Practitioner Family | DX: I10 Essential (primary) hypertension (principal); E03.9 Hypothyroidism, unspecified | CPT/HCPCS: 80053; 80061; 84443; 85025 ==

== ENCOUNTER → 2025-03-27 11:22 | Outpatient (BNVA) | payer MEDICARE, SELFPAY | PROVIDERS: PCP Nurse Practitioner Family; Visit Provider Nurse Practitioner Family | DX: I10 Essential (primary) hypertension (principal) | CPT/HCPCS: 80053; 80061 ==

== ENCOUNTER → 2025-04-15 08:51 | Outpatient (BNVA) | payer MEDICARE, SELFPAY | PROVIDERS: PCP Nurse Practitioner Family; Visit Provider Nurse Practitioner Family | DX: E07.9 Disorder of thyroid, unspecified (principal) | CPT/HCPCS: 84443 ==